=== PATIENT | female | born 1935 | race Hispanic/Latino ===

== ENCOUNTER 2017-02-12 17:08 | Observation (INO) | payer MEDICARE, OTHER ==
--- NOTE | 2017-02-12 17:32 | ED PDOC ---
Arrival/HPI - General Historian: Patient - General Chief Complaint: Chest Pain Time Seen by Provider: 02/12/17 17:20 - History of Present Illness Narrative History of Present Illness (Text): 02/12/17 17:28 Mrs. Lira is a 81 year old female with pmh significant for DM2, hypertension, and elevated cholesterol who presents to the emergency department after being sent over from her PCP's office for chest discomfort. Pt reports a chest tightness along her anterior bra line with some radiation around her side bilaterally. She denies shob, sharp pain upon inspiration, chest pain, fever, nausea, vomiting, or diaphoresis. Pt denies any previous history of chest discomfort. (MICHAEL ARIZMENDI) Past Medical History - Provider Review Nursing Documentation Reviewed: Yes - Infectious Disease Hx of Infectious Diseases: None - Cardiac Hx Hypertension: Yes - Pulmonary Hx Respiratory Disorders: No - Neurological Hx Neurological Disorder: No Other/Comment: diabetic neuropathy, numbness, tingling ble - HEENT Hx HEENT Disorder: Yes (glasses) Hx Cataracts: Yes (b/l sx) - Renal Hx Renal Disorder: No - Endocrine/Metabolic Hx Diabetes Mellitus Type 2: Yes - Hematological/Oncological Hx Blood Transfusions: Yes Hx Blood Transfusion Reaction: No - Integumentary Hx Dermatological Disorder: No - Musculoskeletal/Rheumatological Hx Falls: Yes - Gastrointestinal Hx Gastrointestinal Disorders: No - Genitourinary/Gynecological Hx Reproductive Disorders: No - Psychiatric Hx Anxiety: Yes Hx Substance Use: No - Surgical History Hx Orthopedic Surgery: Yes (left ankle 04/2015 wears brace) - Anesthesia Hx Anesthesia: Yes Hx Anesthesia Reactions: No Hx Malignant Hyperthermia: No - Suicidal Assessment Feels Threatened In Home Enviroment: No Family/Social History - Physician Review Nursing Documentation Reviewed: Yes Family/Social History: No Known Family HX Smoking Status: Never Smoked Hx Alcohol Use: No Hx Substance Use: No Allergies/Home Meds Allergies/Adverse Reactions: Allergies No Known Allergies Allergy (Verified 07/18/15 23:59) Home Medications: Home Meds Medication Instructions Recorded Confirmed Glipizide 20 mg PO BID 09/14/14 02/12/17 Alprazolam [Xanax] 0.25 mg PO BID PRN 03/29/15 02/12/17 Levothyroxine [Synthroid] 0.025 mg PO DAILY 03/29/15 02/12/17 Rosuvastatin Calcium [Crestor] 10 mg PO DAILY 03/29/15 02/12/17 Gabapentin [Neurontin] 300 mg PO TID PRN 02/12/17 02/12/17 Lisinopril [Zestril] 1 tab PO DAILY 02/12/17 02/12/17 Review of Systems - Review of Systems Constitutional: absent: Fatigue, Weight Change Eyes: absent: Vision Changes, Photophobia Respiratory: absent: SOB, Cough Cardiovascular: Other (chest tightness along bra line). absent: Chest Pain, Edema Gastrointestinal: absent: Abdominal Pain, Stool Changes Genitourinary Female: absent: Dysuria, Frequency Musculoskeletal: absent: Neck Pain Skin: absent: Rash, Pruritis Neurological: absent: Headache, Dizziness Endocrine: absent: Diaphoresis Psychiatric: absent: Anxiety, Depression Physical Exam Temperature: Afebrile Blood Pressure: Hypertensive Pulse: Tachycardic Respiratory Rate: Normal Appearance: Positive for: Well-Appearing Pain Distress: None Mental Status: Positive for: Alert and Oriented X 3 - Systems Exam Head: Present: Atraumatic, Normocephalic Pupils: Present: PERRL Extroacular Muscles: Present: EOMI Conjunctiva: Present: Normal Mouth: Present: Moist Mucous Membranes Neck: Present: Normal Range of Motion. No: JVD Respiratory/Chest: Present: Clear to Auscultation, Good Air Exchange. No: Respiratory Distress, Accessory Muscle Use, Wheezes Cardiovascular: Present: Regular Rate and Rhythm, Normal S1, S2, Other (No S3) Abdomen: Present: Normal Bowel Sounds. No: Tenderness, Distention Upper Extremity: Present: Normal Inspection, Normal ROM, NORMAL PULSES Lower Extremity: Present: Normal Inspection, NORMAL PULSES, Normal ROM Neurological: Present: GCS=15, CN II-XII Intact, Speech Normal, Memory Normal Skin: Present: Warm, Dry Psychiatric: Present: Alert, Oriented x 3 Medical Decision Making ED Course and Treatment: 02/12/17 17:35 Impression: Mrs. Lira is a 81 year old female who complains of chest discomfort for the past week. Differential Diagnosis included but are not limited to: - ACS rule out Plan: - Labs: CBC, CMP, Cardiac enzymes - EKG, CXR -- Reassess and disposition Progress Notes: CXR: No acute disease EKG: NSR, rate of 100, no ST elevations, nonspecific T wave changes Accepted by Dr. Lou for cardiac observation, recommends construction administrator consult with Dr. Tse Cardiology consult placed (MICHAEL ARIZMENDI) Seen and examined with resident. 81 y/o F p/w chest pain. Heart S1S2, no extra heart sounds. (Imm,Jaycob Garrett) - Lab Interpretations Lab Results: 02/12/17 17:30 02/12/17 17:30 Lab Results 02/12/17 17:30: Sodium 141, Potassium 4.8, Chloride 107, Carbon Dioxide 21, Anion Gap 18, BUN 34 H, Creatinine 1.3, Est GFR ( Amer) 48, Est GFR (Non- Af Amer) 40, Random Glucose 85, Calcium 10.0, Total Bilirubin 0.5, AST 22, ALT 16, Alkaline Phosphatase 73, Total Creatine Kinase 66, Troponin I < 0.01, Total Protein 8.4 H, Albumin 4.7, Globulin 3.7, Albumin/Globulin Ratio 1.3 02/12/17 17:30: WBC 8.4 D, RBC 3.31 L, Hgb 9.4 L, Hct 29.0 L, MCV 87.6, MCH 28.4, MCHC 32.4, RDW 14.0, Plt Count 368, MPV 10.0, Gran % 63.2, Lymph % (Auto) 24.8, Davie % (Auto) 8.2 H, Eos % (Auto) 2.7, Baso % (Auto) 1.1, Gran # 5.30, Lymph # 2.1, Davie # 0.7 H, Eos # 0.2, Baso # 0.09 - RAD Interpretation Radiology Orders: 02/12/17 17:20 CHEST PORTABLE [RAD] Stat - Medication Orders Current Medication Orders: Discontinued Medications Aspirin (Aspirin) 325 mg PO STAT STA Stop: 02/12/17 17:24 Last Admin: 02/12/17 17:44 Dose: 325 mg - PA / PUBLIC ADDRESS SYSTEM OPERATOR / Resident Statement / has reviewed & agrees with the documentation as recorded. / has examined the patient and agrees with the treatment plan. Disposition/Present on Arrival - Present on Arrival Any Indicators Present on Arrival: No History of DVT/PE: No History of Uncontrolled Diabetes: No Urinary Catheter: No History of Decub. Ulcer: No History Surgical Site Infection Following: None - Disposition Have Diagnosis and Disposition been Completed?: Yes Disposition Time: 18:05 Patient Plan: Observation, Telemetry - Disposition Diagnosis: Chest pain Disposition: HOSPITALIZED Condition: STABLE Discharge Instructions (ExitCare): Chest Pain (ED)
[2017-02-12 17:51] LABS: ALB/GLOB RATIO 1.3 (1.1-1.8); ALBUMIN 4.7 g/dL (3.0-4.8); ALT/SGPT 16 U/L (7-56); AST/SGOT 22 U/L (15-39); BLOOD UREA NITROGEN 34 mg/dL (7-21); GFR AFRICAN-AMERICAN 48; GFR NON-AFRICAN AMERICAN 40
[2017-02-12 17:52] LABS: BASO # 0.09 K/mm3 (0.0-2.0); BASO % 1.1 % (0.0-3.0); EOS # 0.2 (0.0-0.7); EOS % 2.7 % (1.5-5.0); GRAN % 63.2 % (50.0-68.0); HEMOGLOBIN 9.4 gm/dL (12.0-16.0); LYMPH # 2.1 (1.2-3.4); LYMPH % 24.8 % (22.0-35.0); MEAN CELL VOLUME 87.6 fL (80.0-105.0); MEAN CORPUSCULAR HEMOGLOBIN 28.4 pg (25.0-35.0); MEAN CORPUSCULAR HGB CONC 32.4 g/dl (31.0-37.0); MONO # 0.7 (0.1-0.6); MONO % 8.2 % (1.0-6.0); PLATELET COUNT 368 10^3/uL (120.0-450.0); RBC 3.31 10^6/uL (3.5-6.1); WHITE BLOOD COUNT 8.4 10^3/ul (4.5-11.0)
[2017-02-12 18:03] LABS: TROPONIN I < 0.01 ng/mL
[2017-02-13] MEDS ORDERED: Levothyroxine 25 MCG TAB PO SCH (06:00)
--- NOTE | 2017-02-13 09:24 | CARD ---
APPROVED REPORT EKG Measurement Heart [id number] <Conclusion> Sinus tachycardia T wave abnormality, consider lateral ischemia Abnormal ECG
--- NOTE | 2017-02-13 09:57 | RAD ---
HISTORY: cp COMPARISON: No prior. Comparison chest 07/24/2015 FINDINGS: LUNGS: Poor inspiration with low lung volumes, mild crowded bronchovascular markings and mild bibasilar atelectasis. PLEURA: No significant pleural effusion identified, no pneumothorax apparent. CARDIOVASCULAR: Normal. OSSEOUS STRUCTURES: No significant abnormalities. VISUALIZED UPPER ABDOMEN: Normal. OTHER FINDINGS: None. IMPRESSION: Poor inspiration with low lung volumes, mild crowded bronchovascular markings and mild bibasilar atelectasis.
[2017-02-13 11:56] VITALS: BP 147/67; RESP 19; TEMP 98.1; O2SAT 98
[2017-02-13 16:39] VITALS: PULSE 80
--- NOTE | 2017-02-14 03:41 | CON ---
DATE: 02/13/2017 REQUESTING PHYSICIAN: Dr. Chong REASON FOR CONSULTATION: Chest pain. HISTORY OF PRESENT ILLNESS: This is a 81-year-old woman with a longstanding history of hypertension, diabetes, who was sent from Dr. Salvador's office yesterday with complaints of chest discomfort. She describes her discomfort as a fullness under both breasts. Her pain has waxed and waned. She fells somewhat better when standing. She did not describe any clear exertional component to her symptoms. She states the discomfort has been present on and off for a number of weeks. Initial electrocardiogram and blood work were unremarkable. Her last stress test that she believes was over 10 years ago. She does have a longstanding history of hypertension and diabetes. She also has a history of hyperlipidemia. She does not smoke. There is no family history of premature heart disease. PAST MEDICAL HISTORY: Her past history is notable for a total abdominal hysterectomy, bilateral salpingo-oophorectomy. She fractured both ankles in the past and required surgery. She has had a peripheral neuropathy for some period of time. She requires a brace on her left foot for ambulation. She is fairly limited in terms of activities. History of hypothyroidism. MEDICATIONS: Her medications at home include: 1. Glipizide 20 mg b.i.d. 2. Xanax p.r.n. 3. Synthroid 0.025 mg daily. 4. Crestor 10 mg daily. 5. Lisinopril. 6. Neurontin. ALLERGIES: SHE HAS NO REPORTED ALLERGIES. FAMILY HISTORY: Both parents are from age-related illness. A 10-point review of systems is notable mainly for the problems mentioned above. PHYSICAL EXAMINATION GENERAL: She is a elderly women who appears relatively comfortable at the present time. VITAL SIGNS: Her blood pressure is 122/64, with pulse 72 in sinus and respirations 14. She is afebrile. HEENT: Normocephalic and atraumatic. Pupils are equal, round and reactive to light and accommodation. NECK: Supple. No JVD noted. CHEST: Clear to auscultation and percussion. HEART: PMI. No positional or pathological murmurs noted. ABDOMEN: Soft, nontender and normoactive bowel sounds. EXTREMITIES: No clubbing, cyanosis or edema. A brace is present on her left foot. SKIN: Warm and dry. PSYCHIATRIC: Normal mood and affect. NEUROLOGIC: Alert and oriented x3. No gross motor or sensory deficits appreciable. DIAGNOSIS DATA: Electrocardiogram reveals sinus rhythm with nonspecific ST-T abnormalities. Chest X-ray reveals normal cardiac silhouette with clear lung tolbert. White count is 8.4, hemoglobin and hematocrit 9.4 and 29.0 with an MCV of 87.6 and platelet count is 368.000. Potassium 4.8, BUN and creatinine 34 and 1.3. Two sets of cardiac enzymes are normal. IMPRESSION: 1. Chest pain. Does not appear clearly cardiac in nature given some characteristics of her pain. She does, however, have significant cardiac risk factors given her age, hypertension, diabetes, and hyperlipidemia. 2. Apparent anemia, unclear if this is new or old. Further evaluation may be in order. 3. History of hypertension and diabetes. RECOMMENDATIONS: From a cardiac standpoint, if her third set of cardiac enzymes are negative she can be discharged home at this time. An outpatient pharmacologic stress test will be arranged. If she has recurrent symptoms she was instructed to return to emergency room. Thank you for this consultation. We will be happy to provide further ongoing followup as needed. Jaycob Leblanc MD
--- NOTE | 2017-02-15 00:42 | HP ---
HISTORY OF PRESENT ILLNESS: The patient is a 81-year-old, patient of Dr. Salvador. She had some chest pressure as if somebody is squeezing her lower chest, so she went to Dr. Salvador, who checked her out and advised her to go to emergency room for further evaluation to rule out if she is not having angina or AK. Denies any fever or chills. No history of nausea or vomiting. No history of diarrhea. PAST MEDICAL HISTORY: Significant for: 1. Ucx-bvymhhj-odjluzfry diabetes. 2. Hypertension. 3. Remote history of left ankle fracture, couple of months ago. ALLERGIES: She is not allergic to any medication. MEDICATIONS AT HOME: She is on: 1. Metformin 500 twice a day. 2. Amlodipine 10 mg daily. 3. Gabapentin 300 three times a day. 4. Glipizide 10 mg twice a day. 5. Xanax 0.25 b.i.d. 6. Levothyroxine 25 mcg daily. 7. Lisinopril 10 mg daily. 8. Tradjenta 5 mg daily. 9. Crestor 10 mg daily. SOCIAL HISTORY: She lives by herself. Denies smoking now, she used to be heavy smoker in the past. REVIEW OF SYSTEMS: She has no significant complaint at this point except her left ankle pain that she gets on ambulation, and her left foot is in the brace. PHYSICAL EXAMINATION: GENERAL: She is awake and alert, communicative. VITAL SIGNS: She is afebrile, pulse 77, respirations 19, and blood pressure 147/67. HEART: S1 and S2 audible. LUNGS: Bilateral fair airflow. No rhonchi or crackles. ABDOMEN: Soft and nontender. No rebound, no guarding. NEUROLOGIC: The patient is awake and alert, communicative. LABORATORY EXAM: WBC is 8.4, hemoglobin 9.4, hematocrit 29, platelets 368. Chemistries, sodium 141, potassium 4.8, chloride 107, CO2 21, BUN 34, creatinine 1.3, and blood sugar of 111. X-ray of chest is unremarkable. EKG shows sinus tachycardia, T-wave inversion. ASSESSMENT: 1. Chest pain, questionable coronary artery disease. 2. Kdo-nlqcqmi-pzodcwjms diabetes. 3. Hypertension. 4. Hyperlipidemia. 5. Hypothyroidism. PLAN: The patient is sitting at the edge, wanted to go home. She was evaluated by Dr. Cory, who told her that it is okay for her to go home, and since I am not familiar to the patient as much, so it was decided based on patient's wish to go home and follow Dr. Ray as an outpatient to have stress test done as an outpatient. She is advised to resume all the medications as prior to admission, including metformin, amlodipine, gabapentin, glipizide, Xanax, levothyroxine, lisinopril, and Crestor and she was told that if she gets chest pain, she should immediately come back to the hospital. Spike Ding MD
== END 2017-02-13 16:33 | disposition home or self-care (01) ==
LOC: ED 17:08 → ERH 18:19 → 2RSO 21:16
PROVIDERS: ADMIT Internal Medicine Nephrology; ATTEND Internal Medicine Nephrology
DX: R07.89 Other chest pain (principal); I10 Essential (primary) hypertension; E11.42 Type 2 diabetes mellitus with diabetic polyneuropathy; E78.5 Hyperlipidemia, unspecified; E03.9 Hypothyroidism, unspecified; D64.9 Anemia, unspecified; Z79.84 Long term (current) use of oral hypoglycemic drugs
CPT/HCPCS: 36415; 71010; 80053; 82550; 82948; 84484; 85025; 93005; 99285; G0378

== ENCOUNTER 2017-11-19 09:51 | Observation (INO) | payer MEDICARE, OTHER ==
[2017-11-19 10:12] VITALS: BMI 26.9
--- NOTE | 2017-11-19 10:16 | ED PDOC ---
Arrival/HPI - General Chief Complaint: Shortness Of Breath Time Seen by Provider: 11/19/17 10:14 Historian: Patient - History of Present Illness Narrative History of Present Illness (Text): 11/19/17 10:20 82 year old female, whose PMH includes transfusion/DM, who presents to the emergency department, accompanied by daughter, complaining of shortness of breath for the last 2-3 days ago. Patient reports the symptom is worse with movement such as bending over to tie shoes, or taking a few steps. She associates this with being extremely fatigue and notes making an appointment with her PMD for today, but symptoms became worse and decided to come to the emergency department for further eval. Patient denies fever, chills, sweats, chest pain, palpitation, abdominal pain, nausea, vomiting, diarrhea, or appetite changes. pt denied LOC, no lightheadedness. pt is here for further eval, pt's without other complaints Additionally, patient does not recollect previous stress test being done by her court commissioner. PMD: Dr. Salvador Food Server: Dr. Matthew Time/Duration: < week Symptom Onset: Gradual Symptom Course: Worsening Activities at Onset: Light Context: Exertion, Home Past Medical History - Provider Review Nursing Documentation Reviewed: Yes - Travel History Have you recently traveled outside [place] w/in the past 3 mons?: No - Past History Past History: No Previous - Infectious Disease Hx of Infectious Diseases: None - Tetanus Immunization Tetanus Immunization: Unknown - Reproductive Menopause: Yes Currently : No - Cardiac Hx Peripheral Vascular Disease: Yes - Pulmonary Hx Pneumonia: Yes (x2) - Neurological Hx Neurological Disorder: No Other/Comment: diabetic neuropathy, numbness, tingling ble - HEENT Hx HEENT Disorder: Yes (glasses) Hx Cataracts: Yes (b/l sx) - Renal Hx Renal Disorder: No - Endocrine/Metabolic Hx Diabetes Mellitus Type 2: Yes - Hematological/Oncological Hx Blood Transfusions: Yes Hx Blood Transfusion Reaction: No - Integumentary Hx Dermatological Disorder: No - Musculoskeletal/Rheumatological Hx Falls: Yes (today) - Gastrointestinal Hx Gastrointestinal Disorders: No - Genitourinary/Gynecological Hx Reproductive Disorders: No - Psychiatric Hx Anxiety: Yes Hx Substance Use: No - Surgical History Hx Cardiac Catheterization: Yes (10 years ago) - Anesthesia Hx Anesthesia: Yes Hx Anesthesia Reactions: No Hx Malignant Hyperthermia: No - Suicidal Assessment Feels Threatened In Home Enviroment: No Family/Social History - Physician Review Nursing Documentation Reviewed: Yes Family/Social History: Unknown Family HX Smoking Status: Former Smoker Hx Alcohol Use: No Hx Substance Use: No Hx Substance Use Treatment: No Allergies/Home Meds Allergies/Adverse Reactions: Allergies No Known Allergies Allergy (Verified 11/19/17 10:06) Home Medications: Home Meds Medication Instructions Recorded Confirmed Glipizide 20 mg PO BID 09/14/14 11/19/17 Levothyroxine [Synthroid] 50 mcg PO DAILY 03/29/15 11/19/17 Rosuvastatin Calcium [Crestor] 10 mg PO DAILY 03/29/15 11/19/17 Gabapentin [Neurontin] 300 mg PO TID PRN 02/12/17 11/19/17 amLODIPine [Norvasc] 5 mg PO DAILY 11/19/17 11/19/17 Review of Systems - Review of Systems Constitutional: Fatigue. absent: Fevers ENT: absent: Sore Throat Respiratory: SOB. absent: Cough Cardiovascular: absent: Chest Pain Gastrointestinal: absent: Abdominal Pain, Vomiting, Appetite Changes Genitourinary Female: absent: Dysuria Musculoskeletal: absent: Arthralgias, Back Pain Skin: absent: Rash Neurological: absent: Headache Endocrine: absent: Diaphoresis Hemo/Lymphatic: Normal Psychiatric: Normal Physical Exam Vital Signs Reviewed: Yes Vital Signs Temp Pulse Resp BP Pulse Ox 11/19/17 10:06 97.7 F 96 H 22 143/68 97 Temperature: Afebrile Blood Pressure: Hypertensive Pulse: Regular Respiratory Rate: Normal Appearance: Positive for: Well-Appearing, Non-Toxic, Uncomfortable, Other (alert /awake, GCS = 15, oriented x 3, mildly uncomfortable, resting in bed, NAD, cooperative) Pain Distress: None Mental Status: Positive for: Alert and Oriented X 3 - Systems Exam Head: Present: Atraumatic, Normocephalic, Other (mild bi-temporal wasting) Pupils: Present: PERRL, Other (no nystagmus, no photophobia, sclera anicteric; visual field intact b/l) Extroacular Muscles: Present: EOMI Conjunctiva: Present: Normal Ears: Present: Normal Mouth: Present: Moist Mucous Membranes, Other (fair dentitions, no drooling/ stridor, no exudate/lesions, no ulcerations) Pharnyx: Present: Normal Nose (External): Present: Atraumatic Nose (Internal): Present: Normal Inspection Neck: Present: Normal Range of Motion, Trachea Midline, Other (no step off, no midline tenderness). No: Meningeal Signs, MIDLINE TENDERNESS Respiratory/Chest: Present: Clear to Auscultation, Good Air Exchange, Other ( CTA b/l, no w/r/r, no tachypenia). No: Respiratory Distress, Accessory Muscle Use Cardiovascular: Present: Regular Rate and Rhythm, Normal S1, S2. No: Murmurs Abdomen: Present: Normal Bowel Sounds, Other (well nourished female, no focal tenderness, no masses/rebound/guarding/rigidity, no bai's sign, no mcburney' s point tenderness). No: Tenderness, Distention, Peritoneal Signs Back: Present: Normal Inspection. No: CVA Tenderness, Midline Tenderness Upper Extremity: Present: Normal Inspection, Normal ROM, NORMAL PULSES, Neurovascularly Intact. No: Cyanosis, Edema Lower Extremity: Present: Normal Inspection, NORMAL PULSES, Normal ROM, Neurovascularly Intact, Other (slight left lower ankle edema, non-pitting; neurovasc intact b/l, strength 5/5 grossly intact b/l, no neel's sign b/l). No : Edema Neurological: Present: GCS=15, CN II-XII Intact, Speech Normal Skin: Present: Warm, Normal Color, Other (cap refill ~ 1sec, + pallor, no petechiae/lesions). No: Rashes Psychiatric: Present: Alert, Oriented x 3, Normal Insight, Normal Concentration Medical Decision Making ED Course and Treatment: 11/19/17 Impression: 82 year old female with shortness of breath associated with fatigue. I have considered all Differential Diagnosis regarding pt's chief medical complaints/clinical findings included but are not limited to: r/o ACS, r/o failure; unlikely infectious Plan: -- EKG -- Chest X-ray -- Labs -- Reassess and disposition Progress Notes: pt is comfortable currently pt is not in any distress 11/19/17 11:[address] Roman who is aware of ED mgt/txt plan and agrees with admission. Dr Roman also agrees with consultation with , court commissioner. pt denied any chest pain currently pt is made aware of her medical results discussed with the family at length, pt's findings and diagnosis, and the treatments rendered agrees with admission 11/19/17 14:03 Dr. oRman is updated on further diagnosis of the patient (ABNL xray), pt remains admitted to the hospital and will continue to monitor patient inpatient. Re-evaluation Time: 13:00 Reassessment Condition: Improving,but remains with symptoms - Critical Care Critical Care Minutes: 30 minutes Critical Care Time: Excluding Proc Time Narrative Critical Care (Text): 11/19/17 14:35 critical care time: 30min, excluding procedure time, excluding time teaching residents/students/mid-level providers; including initial eval/diagnosis, diagnostic interpretation, re-eval, consultations, final disposition - Lab Interpretations Lab Results: 11/19/17 10:05 11/19/17 10:05 Lab Results 11/19/17 14:10: POC Glucose (mg/dL) 266 H 11/19/17 11:10: Urine Color Yellow, Urine Appearance Clear, Urine pH 6.0, Ur Specific [place] 1.010, Urine Protein 30 H, Urine Glucose (UA) 500 H, Urine Ketones Negative, Urine Blood Negative, Urine Nitrate Negative, Urine Bilirubin Negative, Urine Urobilinogen 0.2, Ur Leukocyte Esterase Small H, Urine RBC 0 - 2 , Urine WBC 10 - 15, Ur Epithelial Cells 4 - 5, Amorphous Sediment Few, Urine Bacteria Mod 11/19/17 10:05: TSH 3rd Generation 1.94 11/19/17 10:05: Sodium 138, Chloride 106, Potassium 4.5, Carbon Dioxide 20 L, Anion Gap 17, BUN 41 H, Creatinine 1.8 H, Est GFR ( Amer) 33, Est GFR ( Non-Af Amer) 27, Random Glucose 303 H* D, Calcium 9.2, Total Bilirubin 0.3, AST 12 L, ALT 23, Alkaline Phosphatase 75, Lactate Dehydrogenase 471, Total Creatine Kinase 61, Troponin I < 0.01, NT-Pro-B Natriuret Pep 2700 H, Total Protein 7.0, Albumin 4.0, Globulin 2.9, Albumin/Globulin Ratio 1.4 11/19/17 10:05: pO2 40, VBG pH 7.28 L, VBG pCO2 47.0, VBG HCO3 22.1, VBG Total CO2 23.5, VBG O2 Sat (Calc) 76.6 H, VBG Base Excess -4.8 L, VBG Potassium 4.7, Sodium 135.0, Chloride 107.0, Glucose 325 H, Lactate 0.8, FiO2 21.0, Venous Blood Potassium 4.7 11/19/17 10:05: PT 11.2, INR 0.97, APTT 30.0 11/19/17 10:05: WBC 9.6, RBC 2.94 L, Hgb 8.3 L, Hct 25.4 L, MCV 86.4, MCH 28.2, MCHC 32.7, RDW 14.2, Plt Count 412, MPV 10.2, Gran % 72.7 H, Lymph % (Auto) 18.6 L, [place] % (Auto) 6.1 H, Eos % (Auto) 2.1, Baso % (Auto) 0.5, Gran # 6.96 H , Lymph # (Auto) 1.8, [place] # (Auto) 0.6, Eos # (Auto) 0.2, Baso # (Auto) 0.05 I have reviewed the lab results: Yes Interpretation: Abnormal lab values (elevated BNP; decr h/h (chronic), elevated GLUC) - RAD Interpretation Narrative RAD Interpretations (Text): 11/19/17 14:35 HISTORY: Leg pain and swelling. Evaluate for DVT PHYSICIAN(S): Niall Calix MD. TECHNIQUE: Duplex sonography and color-flow Doppler with graded compression were used to evaluate the deep venous systems of both lower extremities. FINDINGS: The visualized deep venous systems of both lower extremities are sonographically normal and compressible. Normal wave forms and augmentation are seen. There is no sonographic evidence for deep venous thrombosis in the visualized segments of both lower extremities. IMPRESSION: No sonographic evidence for deep venous thrombosis in the visualized segments of both lower extremities. 11/19/17 14:35 HISTORY: Shortness of breath. COMPARISON: 02/12/2017 TECHNIQUE: Chest PA and lateral FINDINGS: LUNGS: Pulmonary vascular congestion. Collateral radiographs there dense consolidative changes in the lower lobes. PLEURA: No significant pleural effusion identified. No pneumothorax apparent. CARDIOVASCULAR: Normal size heart, pulmonary vascular plethora. OSSEOUS STRUCTURES: No significant abnormalities. VISUALIZED UPPER ABDOMEN: Normal. OTHER FINDINGS: None. IMPRESSION: Lower lobe infiltrates new finding compared to prior studies. There appears be a component of pulmonary vascular congestion. Radiology Orders: 11/19/17 10:33 CHEST TWO VIEWS (PA/LAT) [RAD] Stat DUPLEX LOWER EXTRM VEIN BILAT [US] Stat Compliance Analyst: Radiologist - EKG Interpretation EKG Interpretation (Text): 11/19/17 10:36 NSR at 95 bpm, normal axis, no ectopy, diffuse low voltage inf leads, non- specific st-t changes, ABNL EKG; unchanged compare with old ekg 01/2017 Interpreted by ED Physician: Yes Type: 12 lead EKG Comparison: Similar to previous EKG - Medication Orders Current Medication Orders: Amlodipine Besylate (Norvasc) 5 mg PO DAILY PASCALE Atorvastatin Calcium (Lipitor) 40 mg PO DAILY PASCALE Gabapentin (Neurontin) 300 mg PO TID PRN; Protocol PRN Reason: Pain, moderate (4-7) Glipizide (Glucotrol) 20 mg PO BID PASCALE Azithromycin (Zithromax 500mg In Ns) 500 mg in 250 mls @ 167 mls/hr IVPB STAT STA PRN Reason: Protocol Stop: 11/19/17 14:56 Levothyroxine Sodium (Synthroid) 50 mcg PO DAILY PASCALE Non-Formulary Medication (Linagliptin [Tradjenta]) 5 mg PO DAILY PASCALE Discontinued Medications Albuterol/Ipratropium (Duoneb 3 Mg/0.5 Mg (3 Ml) Ud) 3 ml IH STAT STA Stop: 11/19/17 10:35 Last Admin: 11/19/17 11:03 Dose: 3 ml Aspirin (Ecotrin) 81 mg PO STAT STA Stop: 11/19/17 10:34 Last Admin: 11/19/17 11:01 Dose: 81 mg Furosemide (Lasix) 40 mg IVP STAT STA Stop: 11/19/17 13:29 Ceftriaxone Sodium (Rocephin 1 Gram Ivpb) 1 gm in 100 mls @ 200 mls/hr IVPB STAT STA PRN Reason: Protocol Stop: 11/19/17 13:55 - Scribe Statement The provider has reviewed the documentation as recorded by the Jetibtia Leon Provider Scribe Attestation: All medical record entries made by the Scribe were at my direction and personally dictated by me. I have reviewed the chart and agree that the record accurately reflects my personal performance of the history, physical exam, medical decision making, and the department course for this patient. I have also personally directed, reviewed, and agree with the discharge instructions and disposition. Disposition/Present on Arrival - Present on Arrival Any Indicators Present on Arrival: No History of DVT/PE: No History of Uncontrolled Diabetes: Yes Urinary Catheter: No History of Decub. Ulcer: No History Surgical Site Infection Following: None - Disposition Have Diagnosis and Disposition been Completed?: Yes Diagnosis: Left lower lobe pneumonia, Acute CHF, SOB (shortness of breath) on exertion, Weakness Disposition: HOSPITALIZED Disposition Time: 13:00 Patient Plan: Admission Condition: STABLE Discharge Instructions (ExitCare): Heart Failure (ED), Weakness (ED)
[2017-11-19] MEDS ORDERED: Albuterol-Ipratrop 3 mg / 0.5 (3 ml) UD IH STA (10:34)
[2017-11-19 10:58] LABS: VENOUS BLOOD GAS BASE EXCESS -4.8 mmol/L (0.0-2.0); VENOUS BLOOD GAS PO2 40 mm/Hg (30-55); VENOUS BLOOD PH 7.28 (7.32-7.43)
[2017-11-19 11:00] LABS: BASO # 0.05 K/mm3 (0.0-2.0); BASO % 0.5 % (0.0-3.0); EOS # 0.2 (0.0-0.7); EOS % 2.1 % (1.5-5.0); GRAN # 6.96 (1.4-6.5); GRAN % 72.7 % (50.0-68.0); HEMOGLOBIN 8.3 g/dL (12.0-16.0); LYMPH # 1.8 (1.2-3.4); LYMPH % 18.6 % (22.0-35.0); MEAN CELL VOLUME 86.4 fl (80.0-105.0); MEAN CORPUSCULAR HEMOGLOBIN 28.2 pg (25.0-35.0); MEAN CORPUSCULAR HGB CONC 32.7 g/dl (31.0-37.0); MEAN PLATELET VOLUME 10.2 fl (7.0-11.0); MONO # 0.6 (0.1-0.6); MONO % 6.1 % (1.0-6.0); RBC 2.94 10^6/uL (3.5-6.1); RED CELL DISTRIBUTION WIDTH 14.2 % (11.5-14.5); WHITE BLOOD COUNT 9.6 10^3/ul (4.5-11.0)
[2017-11-19 11:18] LABS: INR 0.97 (0.93-1.08); PROTHROMBIN TIME 11.2 SECONDS (9.4-12.5)
[2017-11-19 11:19] LABS: ALB/GLOB RATIO 1.4 (1.1-1.8); ALT/SGPT 23 U/L (7-56); AST/SGOT 12 U/L (14-36); BLOOD UREA NITROGEN 41 mg/dL (7-21); CALCIUM 9.2 mg/dL (8.4-10.5); GFR AFRICAN-AMERICAN 33; GFR NON-AFRICAN AMERICAN 27
[2017-11-19 11:21] LABS: URINE BILIRUBIN NEGATIVE (NEGATIVE); URINE BLOOD NEGATIVE (NEGATIVE); URINE GLUCOSE (UA) 500 mg/dL (NEGATIVE); URINE LEUKOCYTE ESTERASE SMALL Leu/uL (NEGATIVE); URINE PROTEIN 30 mg/dL (<30 mg/dL); URINE UROBILINOGEN 0.2 E.U./dL (<1 E.U./dL)
[2017-11-19 11:22] LABS: URINE APPEARANCE CLEAR (CLEAR); URINE COLOR YELLOW (YELLOW)
[2017-11-19 11:22] LABS: B-TYPE NATRIURETIC PEPTIDE 2700 pg/mL (0-450); TROPONIN I < 0.01 ng/mL
[2017-11-19 11:30] LABS: URINE BACTERIA MOD (NEG); URINE RBC 0 - 2 /hpf (0-2)
[2017-11-19 11:31] LABS: URINE AMORPHOUS SEDIMENT FEW
--- NOTE | 2017-11-19 12:03 | RAD ---
HISTORY: Shortness of breath. COMPARISON: 02/12/2017 TECHNIQUE: Chest PA and lateral FINDINGS: LUNGS: Pulmonary vascular congestion. Collateral radiographs there dense consolidative changes in the lower lobes. PLEURA: No significant pleural effusion identified. No pneumothorax apparent. CARDIOVASCULAR: Normal size heart, pulmonary vascular plethora. OSSEOUS STRUCTURES: No significant abnormalities. VISUALIZED UPPER ABDOMEN: Normal. OTHER FINDINGS: None. IMPRESSION: Lower lobe infiltrates new finding compared to prior studies. There appears be a component of pulmonary vascular congestion.
--- NOTE | 2017-11-19 13:17 | US ---
HISTORY: Leg pain and swelling. Evaluate for DVT PHYSICIAN(S): Niall Calix MD. TECHNIQUE: Duplex sonography and color-flow Doppler with graded compression were used to evaluate the deep venous systems of both lower extremities. FINDINGS: The visualized deep venous systems of both lower extremities are sonographically normal and compressible. Normal wave forms and augmentation are seen. There is no sonographic evidence for deep venous thrombosis in the visualized segments of both lower extremities. IMPRESSION: No sonographic evidence for deep venous thrombosis in the visualized segments of both lower extremities.
[2017-11-19] MEDS ORDERED: cefTRIAXone 1 gm 1 GM/100 ML BAG IVPB STA (13:26)
[2017-11-19] MEDS ORDERED: Azithromycin 500MG/NS 250ml 500 MG/250 ML BAG IVPB STA (13:27)
--- NOTE | 2017-11-19 13:36 | CARD ---
APPROVED REPORT EKG Measurement Heart [id number] <Conclusion> Normal sinus rhythm Nonspecific T wave abnormality Abnormal ECG
[2017-11-19] MEDS: Levothyroxine 50 MCG TAB PO SCH (15:10)
[2017-11-20 06:53] LABS: BASO # 0.05 K/mm3 (0.0-2.0); BASO % 0.5 % (0.0-3.0); EOS # 0.2 (0.0-0.7); EOS % 1.7 % (1.5-5.0); GRAN # 8.08 (1.4-6.5); GRAN % 77.3 % (50.0-68.0); LYMPH # 1.5 (1.2-3.4); LYMPH % 14.2 % (22.0-35.0); MEAN CELL VOLUME 85.4 fl (80.0-105.0); MEAN CORPUSCULAR HEMOGLOBIN 27.8 pg (25.0-35.0); MEAN CORPUSCULAR HGB CONC 32.5 g/dl (31.0-37.0); MEAN PLATELET VOLUME 9.7 fl (7.0-11.0); MONO # 0.7 (0.1-0.6); MONO % 6.3 % (1.0-6.0); RBC 2.88 10^6/uL (3.5-6.1); RED CELL DISTRIBUTION WIDTH 14.2 % (11.5-14.5); WHITE BLOOD COUNT 10.5 10^3/ul (4.5-11.0)
[2017-11-20 07:21] LABS: ALB/GLOB RATIO 1.3 (1.1-1.8); ALBUMIN 3.9 g/dL (3.0-4.8); CALCIUM 9.5 mg/dL (8.4-10.5)
[2017-11-20] MEDS ORDERED: cefTRIAXone 1 gm 1 GM/100 ML BAG IVPB SCH (10:19)
[2017-11-20] MEDS: Levothyroxine 50 MCG TAB PO SCH (10:37)
--- NOTE | 2017-11-21 01:13 | CON ---
DATE: 11/20/2017 REQUESTING PHYSICIAN: Dr. Chong. REASON FOR CONSULTATION: Questionable congestive heart failure and dyspnea. HISTORY OF PRESENT ILLNESS: This is an 82-year-old woman known to us from previous evaluations with a history of chronic anemia and diabetes who presented to the emergency room with worsening dyspnea and cough for the past several days. In the emergency room, she was noted have a questionable infiltrate on chest x-ray and was found to be anemic as well. She does undergo intermittent Procrit injections as an outpatient basis for her hemoglobin. She apparently is scheduled this for next week. She denies any chest pain. She is unaware of any palpitations. She cannot recall when she was last seen in the office. Her past history is notable for the problems mentioned above. She has had a history of pneumonia in the past. She also has a history of diabetic neuropathy. MEDICATIONS: Her medications at home include Crestor 20 mg daily, glipizide 10 mg daily, metformin 500 g b.i.d., Tradjenta, Neurontin, Norvasc 10 mg daily and Synthroid. PAST MEDICAL HISTORY: History of hypertension, hypothyroidism. In the hospital, she been given a dose of Rocephin as well as Zithromax. ALLERGIES: NONE. SOCIAL HISTORY: She does not smoke or drink. FAMILY HISTORY: Unremarkable for premature heart disease. REVIEW OF SYSTEMS: A 10-point review of systems is notable mainly for problems as mentioned above. PHYSICAL EXAMINATION: GENERAL: She is an elderly woman who appears comfortable at rest. VITAL SIGNS: Her blood pressure is 140/76 with a pulse of 90 and sinus, respirations are 16. She is afebrile. HEENT: Normocephalic, atraumatic. NECK: Supple. No JVD noted. CHEST: Bibasilar crackles heard. HEART: PMI displaced laterally with a 3/6 systolic murmur is noted at the apex and left sternal border. ABDOMEN: Soft, nontender with normoactive bowel sounds. EXTREMITIES: No clubbing, cyanosis or edema. SKIN: Warm and dry. PSYCHIATRIC: Normal mood and affect. NEUROLOGIC: Alert and oriented x3. No gross motor or sensory deficits appreciable. DIAGNOSTIC DATA: Potassium 4.6, BUN and creatinine 40 and 1.8, glucose is 173. White count 10.5, hemoglobin and hematocrit is 8 and 24.6 with platelet count of 430,000. Electrocardiogram revealed sinus rhythm with nonspecific ST-T abnormalities. Chest x-ray reveals mildly enlarged cardiac silhouette with mild increased vascular markings, lower lobe infiltrates are noted especially on lateral film. IMPRESSION: 1. Apparent pneumonia, community-acquired. 2. Murmur consistent with mitral regurgitation, unclear if this has been known in prior admissions. 3. Chronic anemia, fairly profound at present. 4. Chronic renal insufficiency. 5. Rest of problems as noted. RECOMMENDATIONS: Antibiotic therapy should continue for her apparent pneumonia. She does not appear to be in over heart failure at the present time and diuretic therapy does not need to be instituted present time. She does have findings suggestive of significant mitral regurgitation and an echocardiogram will be obtained. She is to be discharge home and this will be arranged as an outpatient. Further plans will be made based upon her clinical course and results of the above findings. If she is felt to be medically stable for discharge home, the rest of her cardiac evaluation can be completed in the office. Thank for this consultation. We will be happy to follow along as needed. Jaycob Leblanc MD MTDJane
--- NOTE | 2017-11-21 01:28 | HP ---
DATE OF EXAM: 11/20/2017 HISTORY OF PRESENT ILLNESS: Ms. Lira is an 82-year-old female, admitted to the hospital with weakness and worsening shortness of breath. Chest x-ray showed bilateral pneumonia. She has a history of anemia and chronic kidney disease. She is currently on Aranesp monthly. Dr. Young managing erythropoietin stimulating agents. Denies any shortness of breath now. No fever during hospitalization. Chronic kidney disease stable. PAST MEDICAL HISTORY: Chronic kidney disease, anemia, recurrent pneumonia, peripheral vascular disease, diabetes mellitus 2, chronic anemia. PAST SURGICAL HISTORY: Cardiac catheterization 10 years ago. PERSONAL HISTORY: Former smoker. No history of alcohol abuse. FAMILY HISTORY: Not contributory. ALLERGIES: NO KNOWN DRUG ALLERGIES. HOME MEDICATIONS: Glipizide 20 mg p.o. b.i.d., levothyroxine 50 mcg daily, Crestor 10 mg daily, gabapentin 300 mg p.o. t.i.d., amlodipine 5 mg daily. REVIEW OF SYSTEMS: As per HPI. Rest of 12-point review of systems reviewed negative. PHYSICAL EXAMINATION: GENERAL: Comfortable in bed, in no acute distress. VITAL SIGNS: Temperature 97.7, heart rate is 96 per minute, respiratory rate 20 per minute, blood pressure 143/68, pulse ox is 97% on room air. HEENT: Normal. CHEST: Air entry present and equal bilateral. No added sounds. CARDIOVASCULAR: S1, S2 normal. No murmur. No gallop. ABDOMEN: Soft, nontender. No hepatosplenomegaly. EXTREMITIES: No edema. PAIN MANAGEMENT NURSE: Alert and oriented x3. No focal sensorimotor deficits. Chest x-ray bilateral pneumonia. LABORATORY DATA: White count 8.3, hemoglobin 25.4, platelet count 412, white count 9.6. BUN 41, creatinine 1.8, glucose 3.3. ASSESSMENT: 1. Bilateral community-acquired pneumonia. 2. Chronic anemia. 3. Chronic kidney disease stage 3. 4. Diabetes mellitus type 2. PLAN: She will be admitted to the hospital. IV antibiotics, ceftriaxone and Zithromax started. ID consultation, Dr. Sinha requested. Norvasc 5 mg daily, Xanax 0.5 mg p.o. at bedtime, Neurontin 300 mg p.o. t.i.d., glipizide 20 mg p.o. b.i.d, Synthroid 50 mcg daily, Tradjenta 5 mg p.o. daily. We will do the iron studies. She is on Aranesp monthly. Hemoglobin is 8 g/dL. Creatinine elevated to 1.8. Blood culture, urine culture negative. Philomena Pantoja MD MTDD
[2017-11-21 06:48] LABS: CALCIUM 9.3 mg/dL (8.4-10.5)
[2017-11-21 07:04] LABS: BASO # 0.04 K/mm3 (0.0-2.0); BASO % 0.4 % (0.0-3.0); EOS # 0.2 (0.0-0.7); EOS % 2.4 % (1.5-5.0); GRAN # 6.71 (1.4-6.5); GRAN % 70.3 % (50.0-68.0); HEMOGLOBIN 7.6 g/dL (12.0-16.0); LYMPH # 1.6 (1.2-3.4); LYMPH % 16.9 % (22.0-35.0); MEAN CELL VOLUME 85.9 fl (80.0-105.0); MEAN CORPUSCULAR HEMOGLOBIN 27.4 pg (25.0-35.0); MEAN CORPUSCULAR HGB CONC 31.9 g/dl (31.0-37.0); MEAN PLATELET VOLUME 9.7 fl (7.0-11.0); RBC 2.77 10^6/uL (3.5-6.1); RED CELL DISTRIBUTION WIDTH 14.2 % (11.5-14.5); WHITE BLOOD COUNT 9.5 10^3/ul (4.5-11.0)
[2017-11-21 08:48] VITALS: PULSE 91; RESP 20; TEMP 100.2; O2SAT 95
[2017-11-21 09:01] LABS: IRON 21 ug/dL (45-180)
[2017-11-21 09:11] LABS: % IRON SATURATION 9 % (20-55); TOTAL IRON BINDING CAPACITY 243 ug/dL (265-497)
[2017-11-21] MEDS: Levothyroxine 50 MCG TAB PO SCH (09:19)
[2017-11-21 09:21] VITALS: BP 120/62
[2017-11-21] MEDS ORDERED: DiphenhydrAMINE 50 mg/ml Inj IVP ONE (11:00)
--- NOTE | 2017-11-21 13:14 | PN ---
DATE: 11/21/2017 SUBJECTIVE: The patient is seen lying in bed on Remote Telemetry. She feels significantly better. Her cough is improved. She remains afebrile. CURRENT MEDICATIONS: Include Glucotrol 20 mg b.i.d., Tradjenta 5 mg daily, Lipitor 40 mg daily, Neurontin, amlodipine 5 mg daily, Rocephin, Zithromax, Synthroid and Xanax p.r.n. OBJECTIVE: GENERAL: She is an elderly woman who appears comfortable at rest. VITAL SIGNS: Her blood pressure is 126/66 with a pulse of 86, in sinus; respirations are 16, she is afebrile. HEENT: No JVD. CHEST: Faint crackles noted at both bases. HEART: PMI displaced laterally with a 3/6 systolic murmur at the apex radiating to the axilla. ABDOMEN: Soft, nontender, normoactive bowel sounds. EXTREMITIES: No edema. DIAGNOSTIC DATA: Potassium is 4.3, BUN and creatinine are 38 and 1.8. White count is 9.5, hemoglobin and hematocrit are 7.6 and 23.8 with a platelet count of 423,000. IMPRESSION: 1. Community-acquired pneumonia, appears clinically improved. 2. Mitral regurgitation. 3. Chronic anemia, receiving intermittent outpatient Procrit injections. 4. Chronic renal insufficiency. RECOMMENDATIONS: Her current medications should continue for now. If she is to be discharged home, an outpatient echocardiogram and office followup will be arranged. If she remains in-house, an echocardiogram can be performed in the morning. Conservative cardiac management is advised at the present time. We will follow up as needed. Jaycob Leblanc MD
--- NOTE | 2017-11-21 22:43 | DS ---
DISCHARGE DIAGNOSES: 1. Severe anemia. 2. Iron deficiency. 3. Chronic kidney disease, stage III. 4. Diabetes mellitus, type 2. 5. Bilateral community-acquired pneumonia. HOSPITAL COURSE: She was admitted with generalized weakness, shortness of breath. Hemoglobin on admission was 8.3 which declined to 7.6 today. She was given the option of blood transfusion which she refused. I spoke to the daughter, Ida. She agreed for IV iron. Iron studies were sent. Iron was low at 22, one dose of IV iron 200 mg given prior to discharge today. She will need continuation of IV iron as outpatient to maintain the normal hemoglobin. She is currently on Aranesp monthly, it was held last month. Chronic kidney disease, stable. PHYSICAL EXAMINATION ON DISCHARGE: GENERAL: Comfortable in bed, in no acute distress. VITAL SIGNS: Temperature 98.8, heart rate 80 per minute, respiratory rate 20 per minute, blood pressure 140/70, pulse ox is 97% on room air. HEENT: Pallor positive. NECK: No lymphadenopathy. CHEST: Air entry present and equal bilateral. No added sound. CARDIOVASCULAR: S1, S2 normal. No murmur. No gallop. ABDOMEN: Soft and nontender. No hepatosplenomegaly. EXTREMITIES: No edema. INTELLIGENCE DIRECTOR: Alert, oriented x3. No focal sensory-motor deficit. CONDITION ON DISCHARGE: Stable. DISPOSITION: Discharge home. HOME MEDICATIONS: Resume home medications. Follow up with Dr. Allred in 1 week. Follow up with Dr. Pantoja in 1 week for continuation of IV iron. Diet, heart-healthy diet. Time spent in preparing discharge, coordinating care 55 minutes. Philomena Pantoja MD
--- NOTE | 2017-11-22 04:25 | CON ---
DATE: 11/21/2017 LOCATION: The patient was seen early this morning, in room 376, bed 2. Patient's son and daughter were present, which helped with the history. CHIEF COMPLAINTS: Acute shortness of breath times 1 day duration. HISTORY OF PRESENT ILLNESS: This is an 82-year-old female with past medical history of diabetes mellitus, diabetic neuropathy, peripheral vascular disease and hyperlipidemia, who came in with shortness of breath. Patient denied any fevers, any chills. She was given diuretic. Shortness of breath improved. No nausea or vomiting. No chest pain. REVIEW OF SYSTEMS: A 12-point review of systems is performed. There are no headaches or no new back pain. No rash. No new joint pain. No fevers. No chills. PAST MEDICAL HISTORY: Significant for diabetes mellitus, diabetic neuropathy, peripheral vascular disease, hyperlipidemia, cataracts and anxiety. PAST SURGICAL HISTORY: Significant for hysterectomy, cardiac catheterization and appendectomy. ALLERGIES: PATIENT HAS NO KNOWN ALLERGIES. MEDICATIONS AT HOME: Reveal the patient to be on glipizide, Synthroid, Crestor, Neurontin and amlodipine. No exposure to any animals. No recent travel. PHYSICAL EXAMINATION: GENERAL: The patient is in bed. VITAL SIGNS: Temperature of 97; T-max is 100.2; heart rate of 91, it was up to 96; respiratory rate of 20, it was up to 22 with oxygen saturation of 95, with blood pressure is 116/63. HEENT: Unremarkable. NECK: Supple. LUNGS: Had decreased breath sounds. HEART: Normal S1, S2. ABDOMEN: Soft and nontender. LABORATORY EXAMINATION: Reveals a white count of 9.6, hemoglobin of 8.3, platelets of 412 and 72% granulocytosis. Coagulation is noted. Chemistries reveal a BUN of 38, creatinine of 1.8 and glucose is 175. The BNP is 2700. Patient had a procalcitonin of 0.05. Dr. Leblanc's note is reviewed. Blood cultures reveal, one bottle is Gram-positive cocci , the other bottle is negative, no growth. Urine culture is mixed organisms. ASSESSMENT AND PLAN: An 82-year-old female with diabetes mellitus and diabetic neuropathy who I saw earlier this morning; patient's daughter and son wanted the patient's discharge, they had an event to attend; who appeared comfortable; there were no fevers and the blood cultures were not available at that time, and admitted for systemic inflammatory response syndrome with Gram-positive cocci, bacteremia, probable contamination, I doubt to be a pathogen. I had recommended the patient to follow up as an outpatient. It appears that this presentation was more consistent with congestive heart failure, which responded to diuretics. At this point in time of this dictation, patient has already been discharged and on doxycycline. We will follow up with the coagulase on the blood cultures; if it is coagulase-negative staphylococcus, most consistent with a contamination; if it is coagulase positive, we will notify the patient to return to the hospital for further evaluation and we will discuss with Microbiology and Dr. Roman and Dr. Pantoja, who is covering Dr. Roman. Certainly, the patient did not appear sepsis with a normal procalcitonin and chest x-ray, which is nonspecific finding , read by Dr. Bladimir Montemayor with questionable left lower lobe infiltrate. Rickie Sinha MD
== END 2017-11-21 15:25 | disposition home or self-care (01) ==
LOC: ED 09:51 → ERH 13:28 → 3RSO 17:02
PROVIDERS: ADMIT Internal Medicine Nephrology; ATTEND Internal Medicine Nephrology
DX: J18.9 Pneumonia, unspecified organism (principal); I13.0 Hypertensive heart and chronic kidney disease with heart failure and stage 1 through stage 4 chronic kidney disease, or unspecified chronic kidney disease; I50.9 Heart failure, unspecified; N18.3 Chronic kidney disease, stage 3 (moderate); E11.22 Type 2 diabetes mellitus with diabetic chronic kidney disease; E11.51 Type 2 diabetes mellitus with diabetic peripheral angiopathy without gangrene; E03.9 Hypothyroidism, unspecified; I34.0 Nonrheumatic mitral (valve) insufficiency; E78.5 Hyperlipidemia, unspecified; E11.40 Type 2 diabetes mellitus with diabetic neuropathy, unspecified; D50.9 Iron deficiency anemia, unspecified; Z87.01 Personal history of pneumonia (recurrent); Z87.891 Personal history of nicotine dependence; Z90.710 Acquired absence of both cervix and uterus
CPT/HCPCS: 36415; 71046; 80048; 80053; 81001; 82550; 82728; 82803; 82948; 83540; 83550; 83615; 83880; 84145; 84443; 84484; 85025; 85610; 85730; 87040; 87086; 87149; 87205; 93005; 93970; 96374; 99285; G0378; J0456; J0696; J1200; J1756; J1940

== ENCOUNTER 2017-12-28 04:46 | Emergency (ER) | payer MEDICARE, OTHER ==
[2017-12-28 05:03] VITALS: BMI 22.3
--- NOTE | 2017-12-28 05:35 | ED PDOC ---
Arrival/HPI - General Chief Complaint: Shortness Of Breath Time Seen by Provider: 12/28/17 05:04 Historian: Patient, Family - History of Present Illness Narrative History of Present Illness (Text): 12/28/17 05:35 Julianna Lira is an 82 year old female, whose past medical history includes diabetes, hypertension, and CHF, who presents to the Emergency department brought in by EMS accompanied by daughter for generalized weakness and chest tightness. Patient states she began experiencing generalized weakness when she woke up this morning and was unable to stand on her own. Patient states she laid herself on to the ground and crawled to kitchen to grab something to eat, as patient believed symptoms were secondary to her diabetes. Patient states she is now experiencing shortness of breath and chest tightness. Patient denies any fever, chills, abdominal pain, nausea, vomiting, diarrhea, back pain, neck pain , headache, dizziness, or any other complaints. PMD: Dr. Salvador Sephora Product Consultant: Dr. Tse Time/Duration: Other (today) Symptom Course: Unchanged Context: Home Past Medical History - Provider Review Nursing Documentation Reviewed: Yes - Past History Past History: No Previous - Infectious Disease Hx of Infectious Diseases: None - Tetanus Immunization Tetanus Immunization: Unknown - Cardiac Hx Peripheral Vascular Disease: Yes Other/Comment: hyperlipidemia - Pulmonary Hx Pneumonia: Yes (x2) - Neurological Hx Neurological Disorder: No Other/Comment: diabetic neuropathy, numbness, tingling ble - HEENT Hx HEENT Disorder: Yes (glasses) Hx Cataracts: Yes (b/l sx) - Renal Hx Renal Disorder: No - Endocrine/Metabolic Hx Diabetes Mellitus Type 2: Yes - Hematological/Oncological Hx Blood Disorders: No Other/Comment: BLOOD TRANSFUSION - Integumentary Hx Dermatological Disorder: No - Musculoskeletal/Rheumatological Hx Falls: Yes - Gastrointestinal Hx Gastrointestinal Disorders: No - Genitourinary/Gynecological Hx Genitourinary Disorders: No - Psychiatric Hx Anxiety: Yes Hx Substance Use: No - Surgical History Hx Cardiac Catheterization: Yes (10 years ago) Hx Orthopedic Surgery: Yes (left ankle 04/2015 wears brace) - Anesthesia Hx Anesthesia: Yes Hx Anesthesia Reactions: No Hx Malignant Hyperthermia: No - Suicidal Assessment Feels Threatened In Home Enviroment: No Family/Social History - Physician Review Nursing Documentation Reviewed: Yes Family/Social History: Unknown Family HX Smoking Status: Never Smoked Hx Alcohol Use: No Hx Substance Use: No Hx Substance Use Treatment: No Allergies/Home Meds Allergies/Adverse Reactions: Allergies No Known Allergies Allergy (Verified 12/28/17 05:02) Home Medications: Home Meds Medication Instructions Recorded Confirmed Glipizide 20 mg PO BID 09/14/14 12/28/17 Levothyroxine [Synthroid] 50 mcg PO DAILY 03/29/15 12/28/17 Rosuvastatin Calcium [Crestor] 10 mg PO DAILY 03/29/15 12/28/17 Gabapentin [Neurontin] 300 mg PO TID PRN 02/12/17 12/28/17 amLODIPine [Norvasc] 5 mg PO DAILY 11/19/17 12/28/17 Ferrous Sulfate [Feosol] 325 mg PO DAILY 12/28/17 12/28/17 Linagliptin [Tradjenta] 5 mg PO DAILY 12/28/17 12/28/17 Review of Systems - Physician Review All systems were reviewed & negative as marked: Yes - Review of Systems Constitutional: Other (+generalized weakness) Eyes: Normal ENT: Normal Respiratory: SOB Cardiovascular: Chest Pain Gastrointestinal: Normal. absent: Abdominal Pain, Diarrhea, Nausea, Vomiting Genitourinary Female: Normal. absent: Dysuria, Frequency, Hematuria, Urine Output Changes Musculoskeletal: Normal. absent: Back Pain, Neck Pain Skin: Normal. absent: Rash Neurological: Normal. absent: Headache, Dizziness Endocrine: Normal Hemo/Lymphatic: Normal Psychiatric: Normal Physical Exam Vital Signs Reviewed: Yes Vital Signs Temp Pulse Resp BP Pulse Ox 12/28/17 06:10 98 H 18 147/65 100 12/28/17 05:42 22 90 L 12/28/17 05:14 97.8 F 95 H 22 172/73 H 89 L 12/28/17 05:13 97.8 F 94 H 17 172/73 H 100 Temperature: Afebrile Blood Pressure: Hypertensive Pulse: Regular Respiratory Rate: Normal Appearance: Positive for: Well-Appearing, Non-Toxic, Comfortable Pain Distress: None Mental Status: Positive for: Alert and Oriented X 3 Finger Stick Blood Glucose: 146 - Systems Exam Head: Present: Atraumatic, Normocephalic Pupils: Present: PERRL Extroacular Muscles: Present: EOMI Conjunctiva: Present: Normal Mouth: Present: Moist Mucous Membranes Neck: Present: Normal Range of Motion Respiratory/Chest: Present: Wheezes, Rales (Rales at the bases). No: Respiratory Distress, Accessory Muscle Use Cardiovascular: Present: Regular Rate and Rhythm, Normal S1, S2. No: Murmurs Abdomen: No: Tenderness, Distention, Peritoneal Signs Back: Present: Normal Inspection Upper Extremity: Present: Normal Inspection. No: Cyanosis, Edema Lower Extremity: Present: Normal Inspection. No: Edema Neurological: Present: GCS=15, CN II-XII Intact, Speech Normal Skin: Present: Warm, Dry, Normal Color. No: Rashes Psychiatric: Present: Alert, Oriented x 3, Normal Insight, Normal Concentration Medical Decision Making ED Course and Treatment: 12/28/17 05:35 Impression: 82 year old female presents to generalized weakness, chest tightness, and shortness of breath. Plan: -- EKG -- Chest X-ray -- Labs, cardiac enzymes, BNP -- Duoneb -- Aspirin -- Nitroglycerin -- Morphine -- Reassess and disposition Progress Notes: Reviewed EKG, NSR at [address]pm[address] Non-specific ST/T wave changes. 12/28/17 06:29 Chest X-ray reviewed, shows increased pulmonary vascular markings. 12/28/17 07:05 Case was d/w .Accepts to his service. - Lab Interpretations Lab Results: 12/28/17 05:50 12/28/17 05:50 Lab Results 12/28/17 05:50: WBC 11.3 H, RBC 3.53, Hgb 9.8 L D, Hct 30.2 L, MCV 85.6, MCH 27.8, MCHC 32.5, RDW 15.6 H, Plt Count 455 H, MPV 9.7 12/28/17 05:50: Sodium 141, Potassium 4.5, Chloride 104, Carbon Dioxide 24, Anion Gap 17, BUN 32 H, Creatinine 1.4 H, Est GFR ( Amer) 44, Est GFR ( Non-Af Amer) 36, Random Glucose 231 H, Calcium 9.6, Total Bilirubin 0.4, AST 16 , ALT 23, Alkaline Phosphatase 76, Lactate Dehydrogenase 480, Total Creatine Kinase 52, Troponin I < 0.01, NT-Pro-B Natriuret Pep 1030 H, Total Protein 7.3, Albumin 4.2, Globulin 3.0, Albumin/Globulin Ratio 1.4 12/28/17 05:50: PT 10.5, INR 0.91 L, APTT 31.9 12/28/17 05:01: POC Glucose (mg/dL) 146 H - RAD Interpretation Radiology Orders: 12/28/17 05:35 CHEST PORTABLE [RAD] Stat - EKG Interpretation Interpreted by ED Physician: Yes Type: 12 lead EKG - Medication Orders Current Medication Orders: Discontinued Medications Albuterol/Ipratropium (Duoneb 3 Mg/0.5 Mg (3 Ml) Ud) 3 ml IH ONCE STA Stop: 12/28/17 05:45 Last Admin: 12/28/17 06:33 Dose: Aspirin (Aspirin) 325 mg PO ONCE STA Stop: 12/28/17 05:56 Last Admin: 12/28/17 06:05 Dose: 325 mg Morphine Sulfate (Morphine) 2 mg IVP STAT STA Stop: 12/28/17 05:54 Last Admin: 12/28/17 06:04 Dose: 2 mg IVP Administration Document 12/28/17 06:04 GIULIA (Rec: 12/28/17 06:05 GIULIA [facility] [id number]) Charges for Administration # of IVP Administrations 1 Nitroglycerin (Nitro-Bid 2% Oint) 1 ea TOP ONCE STA Stop: 12/28/17 05:54 Last Admin: 12/28/17 06:05 Dose: 1 ea - Scribe Statement The provider has reviewed the documentation as recorded by the Bob Antonio Provider Scribe Attestation: All medical record entries made by the Jetibtia were at my direction and personally dictated by me. I have reviewed the chart and agree that the record accurately reflects my personal performance of the history, physical exam, medical decision making, and the department course for this patient. I have also personally directed, reviewed, and agree with the discharge instructions and disposition. Disposition/Present on Arrival - Present on Arrival Any Indicators Present on Arrival: No History of DVT/PE: No History of Uncontrolled Diabetes: No Urinary Catheter: No History of Decub. Ulcer: No History Surgical Site Infection Following: None - Disposition Have Diagnosis and Disposition been Completed?: Yes Diagnosis: Acute CHF Disposition: HOSPITALIZED Disposition Time: 07:04 Patient Problems: Current Active Problems Problem Status Onset Acute CHF Acute Condition: STABLE
[2017-12-28] MEDS ORDERED: Albuterol-Ipratrop 3 mg / 0.5 (3 ml) UD ONE (05:36)
[2017-12-28] MEDS ORDERED: Albuterol-Ipratrop 3 mg / 0.5 (3 ml) UD IH STA (05:44)
[2017-12-28] MEDS ORDERED: Morphine 2 mg/2 mL syringe IVP STA (05:53)
[2017-12-28] MEDS ORDERED: Nitroglycerin 2% Ointment Foilpak UD TOP STA (05:53)
[2017-12-28 06:10] VITALS: RESP 18; O2SAT 100
[2017-12-28 06:11] LABS: MEAN CELL VOLUME 85.6 fl (80.0-105.0); MEAN CORPUSCULAR HEMOGLOBIN 27.8 pg (25.0-35.0); MEAN CORPUSCULAR HGB CONC 32.5 g/dl (31.0-37.0); MEAN PLATELET VOLUME 9.7 fl (7.0-11.0); RBC 3.53 10^6/uL (3.5-6.1); RED CELL DISTRIBUTION WIDTH 15.6 % (11.5-14.5); WHITE BLOOD COUNT 11.3 10^3/ul (4.5-11.0)
[2017-12-28 06:14] LABS: HEMOGLOBIN 9.8 g/dL (12.0-16.0)
[2017-12-28 06:18] LABS: ALB/GLOB RATIO 1.4 (1.1-1.8); ALBUMIN 4.2 g/dL (3.0-4.8); ALT/SGPT 23 U/L (7-56); AST/SGOT 16 U/L (14-36); BLOOD UREA NITROGEN 32 mg/dL (7-21); CALCIUM 9.6 mg/dL (8.4-10.5); GFR AFRICAN-AMERICAN 44; GFR NON-AFRICAN AMERICAN 36
[2017-12-28 06:25] LABS: PROTHROMBIN TIME 10.5 SECONDS (9.4-12.5)
[2017-12-28 06:26] LABS: INR 0.91 (0.93-1.08); PARTIAL THROMBOPLASTIN TIME 31.9 Seconds (25.1-36.5)
[2017-12-28 06:30] LABS: B-TYPE NATRIURETIC PEPTIDE 1030 pg/mL (0-450); TROPONIN I < 0.01 ng/mL
--- NOTE | 2017-12-28 08:14 | RAD ---
HISTORY: sob COMPARISON: 11/19/2017 FINDINGS: LUNGS: No active pulmonary disease. PLEURA: No significant pleural effusion identified, no pneumothorax apparent. CARDIOVASCULAR: Moderate vascular congestion OSSEOUS STRUCTURES: No significant abnormalities. VISUALIZED UPPER ABDOMEN: Normal. OTHER FINDINGS: None. IMPRESSION: Moderate vascular congestion
[2017-12-28 09:23] VITALS: BP 124/80; PULSE 86; TEMP 97.9
--- NOTE | 2017-12-28 14:28 | CARD ---
APPROVED REPORT EKG Measurement Heart [id number] <Conclusion> Normal sinus rhythm Nonspecific T wave abnormality Abnormal ECG
--- NOTE | 2017-12-28 15:00 | CON ---
DATE: 12/28/2017 HISTORY OF PRESENT ILLNESS: This is an 82-year-old woman who became weak with rubbery leg and inability to stand. She thought her blood sugar was low and called to the kitchen and got something out of the refrigerator. When the EMT arrived, her blood sugar was in the 100 range. She began feeling better. She was brought to the emergency room. Apparently, she complained of tightness in the chest, but she does not describe that symptom now. She is resting comfortably in the emergency room with her daughter at the bedside. There is no orthopnea, PND, syncope, loss of consciousness, palpitations, edema, claudication, fever, chills, cough, sputum production, hemoptysis, abdominal pain, nausea, vomiting, diarrhea, constipation, or melena. PAST MEDICAL HISTORY: Notable for diabetes. She states she has been eating less recently. Her blood sugar is often around in the 150 to 200 range. She is anemic, getting iron infusion and Procrit. She has a history of hypertension, hypothyroidism, chronic kidney disease, peripheral neuropathy, anxiety. An echocardiogram in 2014, showed mild MR and moderate TR with normal left ventricular function. Nuclear stress test at that time showed normal perfusion study with an ejection fraction of 69%. MEDICATIONS: At the time of admission include Crestor, glipizide, doxycycline, iron sulfate, Neurontin, Norvasc, Synthroid, Tradjenta, and metformin. ALLERGIES: THERE ARE NO MEDICATION ALLERGIES. SOCIAL HISTORY: She lives at home. She does not smoke. She does not drink alcohol significantly. FAMILY HISTORY: Noncontributory. REVIEW OF SYSTEMS: A 10-point review of systems is otherwise unremarkable except as noted above. PHYSICAL EXAMINATION: GENERAL: She is a well-developed elderly woman, lying on a stretcher in the emergency room, accompanied by her daughter. VITAL SIGNS: Notable for sinus rhythm 98 beats per minute, afebrile 147/65, respirations 18, O2 sat 100% on nasal cannula. HEENT: Reveal no neck vein distention, thyromegaly, or carotid bruits. Mucous membranes moist. Conjunctivae pink. NECK: Supple. LUNGS: Lung tolbert clear. HEART: Reveals normal first and second heart sounds. Soft systolic murmur along the left sternal border. ABDOMEN: Soft, bowel sounds present. No mass, organomegaly, tenderness, rebound, or guarding. No CVA tenderness. No palpable abdominal aortic aneurysm. EXTREMITIES: Reveal no cyanosis, clubbing, or edema. NEUROLOGIC: Awake, alert, and oriented. PSYCHIATRIC: Normal as to mood and affect. SKIN: Warm and dry. No rash or cellulitis. LABORATORY AND IMAGING: A portable chest x-ray is not interpreted yet. Lungs are clear. No infiltrates. No effusion. No CHF. EKG is not available. Apparently, it showed nonspecific ST-T wave changes with no acute changes, I will locate and review. White count is 11,300, hemoglobin 9.8, hematocrit 30.2, platelet count 455,000. PT 10.5, INR 0.91, PTT 31.9. Electrolytes normal. BUN 32, creatinine 1.4. Blood sugar 146 and 231. LFTs unremarkable. Troponin normal. BNP 1030. IMPRESSION: Julianna Lira is an 82-year-old woman who developed weak legs and could not walk. She felt her symptoms were due to hypoglycemia. She took food from the refrigerator and soda. When she was evaluated by EMT and in the emergency room, her blood sugars were in the 100 plus range. She feels better. She complained of chest tightness initially, but the symptom has resolved. The troponin is negative. I will track down her EKG. PLAN: She describes diminished appetite, possibly her diabetes medicines will have to be reduced. I will check her old records. She is going to telemetry. We will monitor her blood sugars closely. We will check stool for occult blood. Monitor I and O. I will follow along with you. Make additional recommendations based on her clinical course. Overall conservative course of cardiac care is anticipated. Prince Tse MD JORDAN
--- NOTE | 2017-12-28 20:54 | HP ---
DATE OF EXAM: 12/28/2017 CHIEF COMPLAINT AND HISTORY OF PRESENT ILLNESS: This is an 82-year-old female who has come into the hospital after she became unsteady on her feet. She is complaining of weakness. She felt that sugars were low. She had gone to her kitchen and had something to eat. She had activated EMS and was brought into the hospital. The patient says she is feeling better. She is awake and alert. She has not been eating as well as she according to her daughter at the bedside. She has no complaints of any fevers or chills. No headaches, no abdominal pain, no back pain, no dysuria, no frequency, no nocturia, no chest pain, no shortness of breath. REVIEW OF SYMPTOMS: All other review of symptoms are within normal limits except what was mentioned. ALLERGIES: SHE HAS NO KNOWN DRUG ALLERGIES. HOME MEDICATIONS: Glipizide, Synthroid, Crestor, Neurontin, Norvasc, iron, Tradjenta. PAST MEDICAL HISTORY: CKD stage III, peripheral arterial disease, diabetes type 2, hypothyroidism, iron deficiency anemia. PAST SURGICAL HISTORY: Cardiac cath about 10 years ago. SOCIAL HISTORY: She is a former smoker. She does not use drugs. She has no history of alcohol abuse. FAMILY HISTORY: Noncontributory. PHYSICAL EXAMINATION: VITAL SIGNS: The patient has a temperature of 97.9, pulse of 96, blood pressure of 124/80, respirations are 18, and O2 saturation of 100%. Height is 5 feet 4 inches. Weight is 130 pounds. BMI is 22.3. GENERAL: The patient lying in bed, uncomfortable, and in no acute distress. HEENT: Atraumatic and normocephalic. Anicteric sclerae. Moist mucosa. [place] conjunctivae. No oral lesions. NECK: No JVD, anterior and posterior adenopathy, thyromegaly, or bruits. CARDIOVASCULAR: S1 and S2 regular. No murmur, rubs, or gallop. LUNGS: Clear to auscultation bilaterally. No wheezes, rales, or rhonchi. ABDOMEN: Bowel sounds are positive. Soft, nontender and nondistended. No hepatosplenomegaly. No rebound and no guarding EXTREMITIES: No cyanosis, clubbing, or edema. NEUROLOGIC: No facial asymmetry. Tongue is midline. No uvula deviation. Power is 5/5 upper extremity and lower extremity. Sensation intact in upper extremity and lower extremity. PSYCHIATRIC: She is awake, alert and oriented x3. No anxiety or depression. She has normal affect. GENITOURINARY: No CVA tenderness. VASCULAR: 2+ pulses in the carotid pulses and pedal pulses. SKIN: No erythema or nodules SPINE: Shows normal curvature. LABORATORY DATA: Her labs have been reviewed. White count of 11.3, hemoglobin 9.8, and platelet count is 455. Chemistry shows sodium 141, potassium is 4.5. Creatinine is 1.4. Chest x-ray shows moderate vascular congestion. ASSESSMENT: 1. Fall secondary to hypoglycemia. 2. Iron-deficiency anemia. 3. Hypertension. 4. Diabetes type 2. 5. Chronic kidney disease, stage III. PLAN: The patient is currently comfortable. She mostly likely had hypoglycemia. When her fingersticks were checked, it was within the normal limits as she had something to eat. She does admit to not having regular meals. She is also on glipizide with CKD. I am concerned that this may be causing her hypoglycemia. The patient was advised to discontinue the glipizide. I did speak to the patient's daughter at the bedside. The patient is going to be discharged home. Her lungs are clear. She has no lower extremity edema. She does not clinically look like that she has acute CHF. Her BNP last month was 2700, this is probably her baseline BNP . She is going to continue her Norvasc at home. She was given aspirin. She was advised to come back to the hospital if her symptoms worsen. She is going to be discharged home and follow up as an outpatient in the office in 1 to 2 weeks. Indio Roman MD
== END 2017-12-28 09:22 | disposition home or self-care (01) ==
LOC: ED 04:46 → UNDOADMOB 07:01 → ERH 07:01
DX: I50.9 Heart failure, unspecified (principal); E11.9 Type 2 diabetes mellitus without complications; I12.9 Hypertensive chronic kidney disease with stage 1 through stage 4 chronic kidney disease, or unspecified chronic kidney disease; N18.3 Chronic kidney disease, stage 3 (moderate); Z87.891 Personal history of nicotine dependence; E03.9 Hypothyroidism, unspecified
CPT/HCPCS: 71045; 80053; 82550; 82948; 83615; 83880; 84484; 85027; 85610; 85730; 93005; 96374; 99285; J2270

== ENCOUNTER 2018-01-01 15:24 | Inpatient (IN) | payer MEDICARE, OTHER ==
[2018-01-01 15:40] VITALS: BMI 25.4
[2018-01-01] MEDS ORDERED: Nitroglycerin 2% Ointment Foilpak UD TOP STA (15:44)
--- NOTE | 2018-01-01 15:50 | ED PDOC ---
Arrival/HPI - General Chief Complaint: Chest Pain Time Seen by Provider: 01/01/18 15:43 Historian: Patient, Family (daughter) - History of Present Illness Narrative History of Present Illness (Text): 01/01/18 15:48 pt p/w + < 1 day onset of epigastric/substernal chest tightness, at most pain is rated at 9/10, waxing and waning and non-radiating; pt states mild sob with faint nausea; pt with similar discomfort in the past but had been under control ; pt had seen Dr Matthew in the past as well as ~ 3-4 days ago when patient was in the Emergency department and was evaluated for acute hypoglycemia; pt is due for outpt ECHO in 2 weeks; pt states + dizziness/lightheadedness, + mild weakness; no fever/chills/sweat, no palpitations, no abd pain, no vomiting, no numbness/tingling, no urinary/bowel changes, no fall/trauma/sick contact, no travel; pt denied LOC pt is here for further eval pt's without other complaints. PCP: Dr Salvador cardiology: Dr Matthew last stress test was ~ 2014 Time/Duration: 24 hours Symptom Onset: Sudden Symptom Course: Worsening Quality: Tightness Severity Level: 9, Severe Activities at Onset: Rest Context: Home Past Medical History - Provider Review Nursing Documentation Reviewed: Yes - Travel History Have you recently traveled outside [place] w/in the past 3 mons?: No - Past History Past History: No Previous - Infectious Disease Hx of Infectious Diseases: None - Tetanus Immunization Tetanus Immunization: Unknown - Reproductive Menopause: Yes Currently : No - Cardiac Hx Peripheral Vascular Disease: Yes Other/Comment: hyperlipidemia - Pulmonary Hx Pneumonia: Yes (x2) - Neurological Hx Neurological Disorder: No Other/Comment: diabetic neuropathy, numbness, tingling ble - HEENT Hx HEENT Disorder: Yes (glasses) Hx Cataracts: Yes (b/l sx) - Renal Hx Renal Disorder: No - Endocrine/Metabolic Hx Diabetes Mellitus Type 2: Yes - Hematological/Oncological Hx Blood Disorders: No Other/Comment: BLOOD TRANSFUSION - Integumentary Hx Dermatological Disorder: No - Musculoskeletal/Rheumatological Hx Falls: Yes - Gastrointestinal Hx Gastrointestinal Disorders: No - Genitourinary/Gynecological Hx Genitourinary Disorders: No - Psychiatric Hx Anxiety: Yes Hx Substance Use: No - Surgical History Hx Cardiac Catheterization: Yes (10 years ago) Hx Orthopedic Surgery: Yes (left ankle 04/2015 wears brace) - Anesthesia Hx Anesthesia: Yes Hx Anesthesia Reactions: No Hx Malignant Hyperthermia: No - Suicidal Assessment Feels Threatened In Home Enviroment: No Family/Social History - Physician Review Nursing Documentation Reviewed: Yes Family/Social History: No Known Family HX Smoking Status: Never Smoked Hx Alcohol Use: No Hx Substance Use: No Hx Substance Use Treatment: No Allergies/Home Meds Allergies/Adverse Reactions: Allergies No Known Allergies Allergy (Verified 01/01/18 15:37) Home Medications: Home Meds Medication Instructions Recorded Confirmed Levothyroxine [Synthroid] 50 mcg PO DAILY 03/29/15 01/01/18 Rosuvastatin Calcium [Crestor] 10 mg PO DAILY 03/29/15 01/01/18 Gabapentin [Neurontin] 300 mg PO TID PRN 02/12/17 01/01/18 amLODIPine [Norvasc] 5 mg PO DAILY 11/19/17 01/01/18 Ferrous Sulfate [Feosol] 325 mg PO DAILY 12/28/17 01/01/18 Linagliptin [Tradjenta] 5 mg PO DAILY 12/28/17 01/01/18 Review of Systems - Review of Systems Constitutional: Fatigue. absent: Weight Change, Fevers, Night Sweats Eyes: Normal ENT: Normal Respiratory: SOB. absent: Cough Cardiovascular: Chest Pain. absent: Palpitations Gastrointestinal: Nausea. absent: Abdominal Pain, Vomiting Genitourinary Female: Normal Musculoskeletal: Normal Skin: Normal Neurological: Dizziness Endocrine: Normal Hemo/Lymphatic: Normal Psychiatric: Normal Physical Exam - Physical Exam Narrative Physical Exam (Text): 01/01/18 17:50 General: alert/awake, GCS = 15, oriented x 3, resting in bed, uncomfortable, cooperative, interactive; NAD Head: NC/AT; mild bi-temporal wasting EYE: PERRLA, EOMI, sclera anicteric, no nystagmus, no photophobia; visual field intact b/l Facial: WNL Oral: uvula/tongue are midline, no exudate/lesions, no drooling/stridor, no dysphonia; intact dentitions; moist oral mucosa NECK: intact ROM, no midline tenderness, no nuchal rigidity, no meningeal signs ; no step off Chest: CTA b/l, no w/r/r; no tachypenia, no accessory muscle use noted Cardiac: +S1, +S2, no r/r, no tachycardia; + 2/6 systolic murmur Abdominal: +BS, soft/nd/nt, well nourished patient; no masses/rebound/guarding/ rigidity; no bai's sign, no mcburney's point tenderness Extremities: intact ROM, strength 5/5 grossly intact in all limbs, neurovasc intact b/l; + ambulatory; reflex +2/2; no pitting edema noted b/l, no neel's sign b/l BACK: no step off, no midline tenderness, NO crepitus, no gross deformities noted; Intact ROM SKIN: cap refill < 1 sec, no ulcerations, no petechiae, no rashes; no pallor NEURO: CNII-XII WNL, no facial asymmetries, no slurr speech, oriented x 3 NIH stroke scale ~ 0 Psych: normal insight, normal affect; follows command with ease Vital Signs Reviewed: Yes Vital Signs Pulse Resp BP Pulse Ox 01/01/18 19:47 88 18 129/56 L 95 01/01/18 18:28 146/96 H 01/01/18 18:16 96 H 18 146/96 H 95 01/01/18 17:50 92 H 18 156/82 H 93 L 01/01/18 16:09 94 H 18 160/79 H 95 Temperature: Afebrile Blood Pressure: Hypertensive Pulse: Regular Respiratory Rate: Normal Appearance: Positive for: Well-Appearing, Non-Toxic, Uncomfortable. No: Ill- Appearing, Unkept Pain Distress: None Mental Status: Positive for: Alert and Oriented X 3 - Systems Exam Head: Present: Atraumatic, Normocephalic Medical Decision Making ED Course and Treatment: 01/01/18 15:49 Impression: epigastric/chest pain i have consider all the differential diagnosis regarding pt's chief medical complaints/clinical findings, including but are not limited to: epigastric/ chest pain; r/o ACS, r/o abd pathology A/P: epigastric/chest pain - labs - iv - acs eval - xray - us - supportive care - observe/reevaluation 1630 pt is comfortable currently pt continues to have some chest tightness/discomfort pt is not in any resp distress pt is awaiting results 1655 with abnl lab results and abnl cxr, will recommend patient for admission: ACS r/ o, abnl pleural effusion, and possible CHF exacerbation 1700 pt is made aware of her medical results pt agrees with admission paging dr Roman 01/01/18 [address] Roman, made aware, agrees with admission; would like to consult cards (dr Matthew) and pulm (dr Hansen) Re-evaluation Time: 17:19 Reassessment Condition: Improving,but remains with symptoms - Critical Care Critical Care Minutes: 30 minutes Critical Care Time: Excluding Proc Time - Lab Interpretations Lab Results: 01/01/18 16:15 01/01/18 16:15 Lab Results 01/01/18 17:09: POC Glucose (mg/dL) 165 H 01/01/18 16:54: Urine Color Yellow, Urine Appearance Sl cloudy, Urine pH 6.0, Ur Specific [place] <= 1.005, Urine Protein 30 H, Urine Glucose (UA) 100 H, Urine Ketones Negative, Urine Blood Trace-lysed H, Urine Nitrate Negative, Urine Bilirubin Negative, Urine Urobilinogen 0.2, Ur Leukocyte Esterase Trace H , Urine RBC 0 - 2, Urine WBC 1 - 3, Ur Epithelial Cells 0 - 2, Urine Bacteria Rare 01/01/18 16:15: TSH 3rd Generation 1.51 01/01/18 16:15: Sodium 139, Potassium 4.4, Chloride 105, Carbon Dioxide 22, Anion Gap 16, BUN 25 H, Creatinine 1.5 H, Est GFR ( Amer) 40, Est GFR ( Non-Af Amer) 33, Random Glucose 180 H, Calcium 9.3, Magnesium 1.9, Total Bilirubin 0.3, AST 13 L, ALT 20, Alkaline Phosphatase 74, Lactate Dehydrogenase 519, Total Creatine Kinase 50, Troponin I < 0.01, NT-Pro-B Natriuret Pep 1570 H , Total Protein 7.2, Albumin 4.2, Globulin 3.0, Albumin/Globulin Ratio 1.4, Lipase 36 01/01/18 16:15: PT 11.1, INR 0.97, APTT 30.4 01/01/18 16:15: WBC 9.5, RBC 3.46 L, Hgb 9.5 L, Hct 29.5 L, MCV 85.3, MCH 27.5, MCHC 32.2, RDW 15.8 H, Plt Count 456 H, MPV 9.6, Gran % 72.8 H, Lymph % (Auto) 18.3 L, [place] % (Auto) 6.0, Eos % (Auto) 2.2, Baso % (Auto) 0.7, Gran # 6.92 H, Lymph # (Auto) 1.7, [place] # (Auto) 0.6, Eos # (Auto) 0.2, Baso # (Auto) 0.07 I have reviewed the lab results: Yes Interpretation: Abnormal lab values (elevated BUN/creat) - RAD Interpretation Narrative RAD Interpretations (Text): 01/01/18 17:05 Abdomen Ultrasound reviewed, shows: LIVER: Measures 14.2 cm. Liver demonstrates smooth contour though increased echotexture suggesting fatty infiltration ; other infiltrative hepatocellular disease process not excluded. No obvious mass or collection seen on images presented. . No intrahepatic bile duct dilatation. GALLBLADDER: Previously described gallstones and/or, polyps or sludge balls within the gallbladder lumen not visualized on this exam with any certainty COMMON BILE DUCT: Measures 2.5 mm. No stones. No dilatation. PANCREAS: Unremarkable as visualized. No mass. No ductal dilatation. RIGHT KIDNEY: Measures 9.7 x 5.0 x 5.1cm. Normal echogenicity. No calculus, mass, or hydronephrosis. LEFT KIDNEY: Measures 9.3 x 4.9 x 5.0cm. Normal echogenicity. No calculus, mass, or hydronephrosis. SPLEEN: Normal in size and contour. No mass. AORTA: No aneurysmal dilatation. IVC: Unremarkable. OTHER FINDINGS: Left-sided pleural effusion. IMPRESSION: Left-sided pleural effusion. Suspect mild fatty hepatic infiltration however other infiltrative hepatic cellular disease process not excluded. . Previously described gallstones and/or, polyps or sludge balls within the gallbladder lumen not visualized on this exam with any certainty prelim result: Chest X-Ray - + left pleural effusion Radiology Orders: 01/01/18 15:44 CHEST TWO VIEWS (PA/LAT) [RAD] Stat 01/01/18 15:47 ABDOMEN COMPLETE [US] Stat Lab Aid: Radiologist - EKG Interpretation EKG Interpretation (Text): 01/01/18 21:42 NSR at 95 bpm, normal axis, no ectopy, diffuse low voltage inf leads, qs in leads III, inverted/biphasic T noted to lead III, V5-6, no st changes, ABNL EKG ; unchanged compare with old ekg 11/2017 Interpreted by ED Physician: Yes Type: 12 lead EKG Comparison: Similar to previous EKG - Medication Orders Current Medication Orders: Discontinued Medications Aspirin (Aspirin) 325 mg PO STAT STA Stop: 01/01/18 15:45 Last Admin: 01/01/18 15:53 Dose: 325 mg Furosemide (Lasix) 40 mg IVP STAT STA Stop: 01/01/18 17:54 Last Admin: 01/01/18 18:28 Dose: 40 mg MAR Blood Pressure Document 01/01/18 18:28 OCS (Rec: 01/01/18 18:29 OCS [id number]) Blood Pressure Blood Pressure (100/60-150/90) 146/96 IVP Administration Document 01/01/18 18:28 OCS (Rec: 01/01/18 18:29 OCS [id number]) Charges for Administration # of IVP Administrations 1 Ceftriaxone Sodium (Rocephin 1 Gram Ivpb) 1 gm in 100 mls @ 200 mls/hr IVPB STAT STA PRN Reason: Protocol Stop: 01/01/18 17:36 Last Admin: 01/01/18 17:16 Dose: 200 mls/hr eMAR Start Stop Document 01/01/18 17:16 OCS (Rec: 01/01/18 17:16 OCS [id number]) Intravenous Solution Start Date 01/01/18 Start Time 17:16 End Date 01/01/18 End time 17:46 Total Infusion Time 30 Azithromycin (Zithromax 500mg In Ns) 500 mg in 250 mls @ 167 mls/hr IVPB STAT STA PRN Reason: Protocol Stop: 01/01/18 18:37 Last Admin: 01/01/18 18:29 Dose: 167 mls/hr eMAR Start Stop Document 01/01/18 18:29 OCS (Rec: 01/01/18 18:29 OCS [id number]) Intravenous Solution Start Date 01/01/18 Start Time 18:29 End Date 01/01/18 End time 19:59 Total Infusion Time 90 Nitroglycerin (Nitro-Bid 2% Oint) 1 ea TOP STAT STA Stop: 01/01/18 15:45 Last Admin: 01/01/18 15:53 Dose: 1 ea Tramadol HCl (Ultram) 50 mg PO STAT STA Stop: 01/01/18 17:16 Last Admin: 01/01/18 17:37 Dose: 50 mg MAR Pain Assessment Document 01/01/18 17:37 EWO (Rec: 01/01/18 17:37 EWO [id number]) Pain Reassessment Is this a pain reassessment? No - Scribe Statement The provider has reviewed the documentation as recorded by the Scribtia Kwok All medical record entries made by the Scribtia were at my direction and personally dictated by me. I have reviewed the chart and agree that the record accurately reflects my personal performance of the history, physical exam, medical decision making, and the department course for this patient. I have also personally directed, reviewed, and agree with the discharge instructions and disposition. Disposition/Present on Arrival - Present on Arrival Any Indicators Present on Arrival: No History of DVT/PE: No History of Uncontrolled Diabetes: No Urinary Catheter: No History of Decub. Ulcer: No History Surgical Site Infection Following: None - Disposition Have Diagnosis and Disposition been Completed?: Yes Diagnosis: Chest pain with minimal risk for cardiac etiology, Pleural effusion, left, CHF (congestive heart failure) Disposition: HOSPITALIZED Disposition Time: 17:52 Patient Plan: Admission, Telemetry Patient Problems: Current Active Problems Problem Status Onset Chest pain with minimal risk for cardiac etiology Acute Pleural effusion, left Acute CHF (congestive heart failure) Acute Condition: STABLE
[2018-01-01 16:27] LABS: BASO # 0.07 K/mm3 (0.0-2.0); BASO % 0.7 % (0.0-3.0); EOS # 0.2 (0.0-0.7); EOS % 2.2 % (1.5-5.0); GRAN # 6.92 (1.4-6.5); GRAN % 72.8 % (50.0-68.0); HEMOGLOBIN 9.5 g/dL (12.0-16.0); LYMPH # 1.7 (1.2-3.4); LYMPH % 18.3 % (22.0-35.0); MEAN CELL VOLUME 85.3 fl (80.0-105.0); MEAN CORPUSCULAR HEMOGLOBIN 27.5 pg (25.0-35.0); MEAN CORPUSCULAR HGB CONC 32.2 g/dl (31.0-37.0); MEAN PLATELET VOLUME 9.6 fl (7.0-11.0); MONO # 0.6 (0.1-0.6); RBC 3.46 10^6/uL (3.5-6.1); RED CELL DISTRIBUTION WIDTH 15.8 % (11.5-14.5); WHITE BLOOD COUNT 9.5 10^3/ul (4.5-11.0)
[2018-01-01 16:40] LABS: ALB/GLOB RATIO 1.4 (1.1-1.8); ALBUMIN 4.2 g/dL (3.0-4.8); ALT/SGPT 20 U/L (7-56); AST/SGOT 13 U/L (14-36); BLOOD UREA NITROGEN 25 mg/dL (7-21); CALCIUM 9.3 mg/dL (8.4-10.5); GFR AFRICAN-AMERICAN 40; GFR NON-AFRICAN AMERICAN 33; LIPASE 36 U/L (23-300)
[2018-01-01 16:44] LABS: INR 0.97 (0.93-1.08); PARTIAL THROMBOPLASTIN TIME 30.4 Seconds (25.1-36.5); PROTHROMBIN TIME 11.1 SECONDS (9.4-12.5)
[2018-01-01 16:47] LABS: B-TYPE NATRIURETIC PEPTIDE 1570 pg/mL (0-450)
[2018-01-01 16:48] LABS: TROPONIN I < 0.01 ng/mL
--- NOTE | 2018-01-01 17:03 | US ---
HISTORY: Epigastric pain COMPARISON: Comparison made with prior CT scan abdomen and pelvis 03/31/2015 TECHNIQUE: Sonographic evaluation of the abdomen. FINDINGS: LIVER: Measures 14.2 cm. Liver demonstrates smooth contour though increased echotexture suggesting fatty infiltration ; other infiltrative hepatocellular disease process not excluded. No obvious mass or collection seen on images presented. . No intrahepatic bile duct dilatation. GALLBLADDER: Previously described gallstones and/or, polyps or sludge balls within the gallbladder lumen not visualized on this exam with any certainty COMMON BILE DUCT: Measures 2.5 mm. No stones. No dilatation. PANCREAS: Unremarkable as visualized. No mass. No ductal dilatation. RIGHT KIDNEY: Measures 9.7 x 5.0 x 5.1cm. Normal echogenicity. No calculus, mass, or hydronephrosis. LEFT KIDNEY: Measures 9.3 x 4.9 x 5.0cm. Normal echogenicity. No calculus, mass, or hydronephrosis. SPLEEN: Normal in size and contour. No mass. AORTA: No aneurysmal dilatation. IVC: Unremarkable. OTHER FINDINGS: Left-sided pleural effusion. IMPRESSION: Left-sided pleural effusion. Suspect mild fatty hepatic infiltration however other infiltrative hepatic cellular disease process not excluded. . Previously described gallstones and/or, polyps or sludge balls within the gallbladder lumen not visualized on this exam with any certainty
[2018-01-01] MEDS ORDERED: cefTRIAXone 1 gm 1 GM/100 ML BAG IVPB STA (17:07)
[2018-01-01] MEDS ORDERED: Oxycodone/Acetaminophen 5/325 mg Tab PO STA (17:08)
[2018-01-01] MEDS ORDERED: Azithromycin 500MG/NS 250ml 500 MG/250 ML BAG IVPB STA (17:08)
[2018-01-01 17:15] LABS: URINE BILIRUBIN NEGATIVE (NEGATIVE); URINE BLOOD TRACE-LYSED (NEGATIVE); URINE GLUCOSE (UA) 100 mg/dL (NEGATIVE); URINE LEUKOCYTE ESTERASE TRACE Leu/uL (NEGATIVE); URINE PROTEIN 30 mg/dL (<30 mg/dL); URINE UROBILINOGEN 0.2 E.U./dL (<1 E.U./dL)
[2018-01-01 17:21] LABS: URINE APPEARANCE SL CLOUDY (CLEAR); URINE COLOR YELLOW (YELLOW)
[2018-01-01 17:35] LABS: URINE EPITHELIAL CELLS 0 - 2 /hpf (0-5); URINE RBC 0 - 2 /hpf (0-2)
[2018-01-01 17:36] LABS: URINE BACTERIA RARE (NEG)
[2018-01-02] MEDS: Insulin Reg-LOW-Coverage SC SCH ×4 (07:30→21:48)
[2018-01-02] MEDS: Levothyroxine 50 MCG TAB PO SCH (08:30)
[2018-01-02] MEDS: LINAGLIPTIN 5 MG PO SCH (09:32)
--- NOTE | 2018-01-02 10:17 | RAD ---
HISTORY: chest pain COMPARISON: No prior. TECHNIQUE: Chest PA and lateral FINDINGS: LUNGS: Poor inspiration with low lung volumes, crowded bronchovascular markings and mild bibasilar atelectasis. The interstitial markings are also increased and coarsened particularly in the mid to lower lung zones. Findings consistent with mild pulmonary vascular congestion. Small bilateral effusions left larger than right. PLEURA: As above. No pneumothorax apparent. CARDIOVASCULAR: Heart upper limits of normal in size OSSEOUS STRUCTURES: No significant abnormalities. VISUALIZED UPPER ABDOMEN: Normal. OTHER FINDINGS: None. IMPRESSION: Poor inspiration with low lung volumes, crowded bronchovascular markings and mild bibasilar atelectasis. The interstitial markings are also increased and coarsened particularly in the mid to lower lung zones. Findings consistent with mild pulmonary vascular congestion. Small bilateral effusions left larger than right.
--- NOTE | 2018-01-02 15:45 | CARD ---
APPROVED REPORT EKG Measurement Heart [id number] <Conclusion> Normal sinus rhythm Normal ECG
--- NOTE | 2018-01-02 17:09 | CT ---
PROCEDURE: CT chest dated 01/02/2018 HISTORY: Pneumonia vs effusion vs mass COMPARISON: Comparison made with chest radiograph 01/01/2018. Comparison also made with CT scan abdomen pelvis 03/31/2015 which imaged both lung bases. TECHNIQUE: Contiguous axial images were obtained through the chest without intravenous contrast enhancement. Sagittal and coronal reconstructions were performed. Radiation dose (DLP): 300.66 mGy-cm. This CT exam was performed using one or more of the following dose reduction techniques: Automated exposure control, adjustment of the mA and/or kV according to patient size, and/or use of iterative reconstruction technique. . FINDINGS: LUNGS: Mild pulmonary vascular congestive changes with atelectasis small to medium-sized bilateral effusions left slightly larger than right and mild bibasilar atelectasis left greater than right. . MEDIASTINUM: Heart is enlarged. No significant pericardial effusion. Ascending thoracic aorta measures approximately 2.7 cm and descending thoracic aorta measures approximately 2.2 cm. Pulmonary trunk measures approximately 2.8 cm. . Central airways midline and patent. No large central endoluminal lesions. There is a small hiatal hernia. There appears to be enlarged mediastinal lymph node in the mid and right precarinal region measuring approximately 18 mm. . There are at least 2 lymph nodes adjacent to the left aspect of the aortic arch with the largest measuring approximately 11 mm. Another prevascular lymph nodes seen just dorsal to the crossing left brachiocephalic vein which measures approximately 7 mm. Evaluation for hilar adenopathy is limited due to the lack of circulating intravenous contrast material. PLEURA: As above. No pneumothorax BONES: No mild multilevel degenerative spondylosis of the thoracic spine. There are no acute compression fractures nor retropulsed fragments. There is a small elliptical shaped sclerotic lesion within the posterior superior aspect of the T8 segment likely representing bone island or osteoma ; and there is a history of malignancy in this patient, consider follow-up bone scan. The degenerative spondylosis lower cervical spine. UPPER ABDOMEN: Note made of multiple small hyperdense on masslike lesions along the endo luminal surface of the gallbladder. Findings could represent adherent gallbladder polyps versus adherent sludge or gallstones ; rule out gallbladder carcinoma. Followup gallbladder ultrasound is recommended for further evaluation. OTHER FINDINGS: None. IMPRESSION: Pulmonary vascular congestion with bilateral effusions and bibasilar atelectasis left larger than right. Several on small to borderline mediastinal lymph nodes the largest measuring approximately 18 mm in the precarinal region. Clinic correlation recommended. Multiple small hyperdense foci seen scattered along the luminal surface of the gallbladder ; findings are of uncertain etiology though differential diagnosis would include polyps, adherent gallstones or sludge balls. The possibility of gallbladder carcinoma not excluded. Recommend followup gallbladder ultrasound. Small sclerotic focus T8 segment likely representing bone island or osteoma. There is a history of malignancy this patient, consider follow-up bone scan.
--- NOTE | 2018-01-02 21:27 | CON ---
DATE: 01/02/2018 PULMONARY CONSULTATION LOCATION: Room 368, bed 1. HISTORY OF PRESENT ILLNESS: This is a 82-year-old sudha woman, who presented to the emergency room with epigastric and substernal chest pain. She is currently being followed by Dr. Curt Salvador. She had an appointment to see Dr. Tse for a similar discomfort that she had in the past. The patient has a history of pneumonia within the last 2 months, this resolved without problems, and she has been breathing comfortably afterwards. The patient is a nonsmoker. She has no occupational exposure. There are no other complaints at this time. The patient does not have pleuritic chest pain. There were no problems in her lower extremities. She was seen in the emergency room, and I am the first to see her on the floor. PAST MEDICAL HISTORY: Negative. She is menopausal. She has peripheral vascular disease. She had 2 episodes of pneumonia in the past. She has type 2 diabetes mellitus. FAMILY HISTORY: Negative. SOCIAL HISTORY: She has no occupational exposure. She never smoked. No travel history. No substance abuse. ALLERGIES: NO KNOWN ALLERGIES. HOME MEDICATIONS: Synthroid, Crestor, Neurontin, Norvasc, Feosol, Tradjenta. REVIEW OF SYSTEMS: Complete review of systems has taken place. There are no significant abnormalities. The patient denies shortness of breath or cough. There are no palpitations. The patient has diabetes mellitus, which seems to be adequately controlled according to the patient. No additional information obtained. All other systems negative. PHYSICAL EXAMINATION: GENERAL: The patient is sitting comfortably, very pleasant, in no acute distress. There is no pain at the present time. She is awaiting Dr. Roman to see her and is awaiting for the support associate Dr. Tse and Dr. Leblanc to see her as well. She is awake and alert, and oriented. VITAL SIGNS: Stable, with heart rate of 80, respiratory rate 16, blood pressure 130/60, pulse ox 96% on room air. HEENT: Normocephalic, atraumatic. Eyes: PERRLA. EOMs full. Conjunctivae pink. NECK: Supple. No JVD. No lymphadenopathy. No bruit. HEART: Regular rhythm. S1 and S2, without gallop or rub. There is a soft systolic ejection murmur at the lower left sternal border. CHEST: Clear to percussion and auscultation. No rales, rhonchi or wheezes. There is dullness at the left base. ABDOMEN: Soft. Bowel sounds normoactive, without mass, guarding, rebound or organomegaly. EXTREMITIES: Reveal no clubbing, cyanosis or edema. SKIN: No rash or excoriation. NEUROLOGIC: Exam grossly intact. No focal findings. LABORATORY DATA: Show a white count of 9500, hemoglobin of 9.5. Coagulation normal. Chemistries, no abnormalities noted. Urine, proteinuria. EKG, normal sinus rhythm, nonspecific ST-T wave changes. Chest x-ray reviewed by myself, not officially read as yet, shows no significant cardiomegaly, some small left pleural effusion and/or density, this cannot be fully evaluated on chest x-ray. IMPRESSION: 1. Status post chest pain. 2. Left pleural effusion. 3. Rule out coronary artery disease. 4. Rule out underlying left lower lobe mass. PLAN: Would suggest the echocardiogram already planned to look for left ventricular failure and suggest BNP . A CT of the chest will be ordered to better define the abnormalities seen at the left base. If necessary, a diagnostic thoracentesis may be required. Must rule out additional pathology. We will stand ready to see her again once initial testing is in and the patient is examined by Cardiology. Thank you for the opportunity to see this sudha patient. Uriel Cornelius MD MTDJane
--- NOTE | 2018-01-02 22:59 | HP ---
DATE OF EXAM: 01/02/2018 CHIEF COMPLAINT AND HISTORY OF PRESENT ILLNESS: This is an 82-year-old female who is coming into the hospital complaining of substernal chest pain below her breast bilaterally. She says she has been having this pain on and off, sometimes worse when she lays down. The patient had been seeing Dr. Tse. She was supposed to get an echo. She says the pain was about 9/10. It was waxing and waning. It did not radiate to anywhere. She had mild shortness of breath. She denies any chills. No headaches. She sometimes gets lightheaded. She has no weakness in the arms or the legs. No nausea or vomiting. REVIEW OF SYMPTOMS: All other review of symptoms are within normal limits except that was mentioned. ALLERGIES: NO KNOWN DRUG ALLERGIES. MEDICATIONS: Her home medications has been reviewed on the [facility]. PAST MEDICAL HISTORY: CKD stage III, peripheral arterial disease, diabetes type 2, hypothyroidism, iron deficiency anemia. PAST SURGICAL HISTORY: Cardiac cath about 10 years ago. SOCIAL HISTORY: She is a former smoker. She does not use drugs. She has no history of alcohol abuse. FAMILY HISTORY: Noncontributory. PHYSICAL EXAMINATION: VITAL SIGNS: Temperature is 97.8, pulse of 82, blood pressure 135/65, respirations 20, O2 saturation 95%. Height is 5 feet 1 inch, weight is 135 pounds, BMI is 25.5. GENERAL: The patient lying in bed, uncomfortable, and in no acute distress. HEENT: Atraumatic and normocephalic. Anicteric sclerae. Moist mucosa. [place] conjunctivae. No oral lesions. NECK: No JVD, anterior and posterior adenopathy, thyromegaly, or bruits. CARDIOVASCULAR: S1 and S2 regular. No murmur, rubs, or gallop. LUNGS: Clear to auscultation bilaterally. No wheezes, rales, or rhonchi. ABDOMEN: Bowel sounds are positive. Soft, nontender and nondistended. No hepatosplenomegaly. No rebound and no guarding EXTREMITIES: No cyanosis, clubbing, or edema. NEUROLOGIC: No facial asymmetry. Tongue is midline. No uvula deviation. Power is 5/5 upper extremity and lower extremity. Sensation intact in upper extremity and lower extremity. PSYCHIATRIC: She is awake, alert and oriented x3. No anxiety or depression. She has normal affect. GENITOURINARY: No CVA tenderness. VASCULAR: 2+ pulses in the carotid pulses and pedal pulses. SKIN: No erythema or nodules. SPINE: Shows normal curvature. LABS: White count of 9.5, hemoglobin 9.5, platelet count is 456. Chemistry shows creatinine of 1.5, magnesium is 1.9, albumin is 4.2. Urine shows blood that is trace, nitrates are negative, bilirubin is negative. INR is 0.97. Chest x-ray done shows poor inspiration with low lung volumes. There is small bilateral pleural effusion, left greater than right. Abdominal ultrasound done shows left-sided pleural effusion. There is mild fatty infiltrate, possible gallstones in the gallbladder. ASSESSMENT: 1. Chest pain. 2. Hypertension. 3. Diabetes type 2. 4. Chronic kidney stage III. 5. Left-sided pleural effusion, small. PLAN: The patient is currently comfortable. She is going to be admitted to the hospital. We will have Dr. Tse to evaluate the patient and Dr. Hansen. The patient is on iron replacement. She is going to be on Neurontin for neuropathy. She is on Norvasc for hypertension. She is on Synthroid for hypothyroidism. She has had two troponins that have been negative. We will await further input from Dr. Tse and Benji. She is on a heart-healthy diet. She may need a stress test. Indio Roman MD
[2018-01-03] MEDS: Insulin Reg-LOW-Coverage SC SCH ×4 (08:32→21:19)
[2018-01-03] MEDS: Levothyroxine 50 MCG TAB PO SCH (08:33)
[2018-01-03] MEDS: LINAGLIPTIN 5 MG PO SCH (09:21)
[2018-01-03 10:39] LABS: ALB/GLOB RATIO 1.5 (1.1-1.8); ALBUMIN 4.5 g/dL (3.0-4.8); CALCIUM 9.7 mg/dL (8.4-10.5)
[2018-01-03] MEDS ORDERED: Barium Sulfate Susp 2.1% w/v, 2.0% w/w 450 mL Bottle PO ONE ×2 (10:45)
--- NOTE | 2018-01-03 12:17 | CP.PCM.CON ---
<Akua Aguirre - Last Filed: 01/03/18 13:19> History of Present Illness - History of Present Illness History of Present Illness: GI consult for Nikky Wood PGY2 Reason for consult: Atypical chest pain and anemia This is an 82yo female with past medical history of CKD, iron deficiency anemia , PAD, NIDDM, hypothyroidism who came to the ED for pain in her chest. Patient reports the pain is located under her breast and feels like a tightening feeling that radiates to her back. She states it is intermittent and takes Ibuprofen on average twice per week for the pain. This pain has been on and off for several years. She denies shortness of breath, nausea/vomiting/diarrhea, vision changes, fever/chills, dysuria or hematuria. She had an colonoscopy with Dr. Arellano in 2011. Patient was evaluated for iron deficiency anemia in [address] Cha and Dr[address] Barry. Patient was supposed to have a colonoscopy as outpatient which she has not done yet. Stool was negative for occult blood at this time. Peripheral smear in 2014 showed spherocytosis. She does take PO Iron at home and denies any melena or blood in stool. In ED, EKG showed NSR. CXR showed L pleural effusion. CT chest was ordered which showed small hyperdensities along the luminal surface of the gallbladder, pulm vasc congestion with bilateral effusions. Abdominal U/S showed 2.5mm CBD, no evidence of stones. Past medical history: HTN, PAD, NIDDM, hypothyroidism, CKD stage IIIb, Iron deficiency anemia Past surgical history: Cardiac cath Home meds: As per MAR Allergies: NKDA Social history: Former smoker, denies EtOH or drug use. Family history: non-contributory PMD: Dr. Salvador Cardio: Dr. Tse Review of Systems - Review of Systems All systems: reviewed and no additional remarkable complaints except Review of Systems: 12 point ROS reviewed as per HPI and is otherwise negative. Past Patient History - Infectious Disease Hx of Infectious Diseases: None - Tetanus Immunizations Tetanus Immunization: Unknown - Past Social History Smoking Status: Never Smoked - CARDIAC Hx Peripheral Vascular Disease: Yes Other/Comment: hyperlipidemia - PULMONARY Hx Pneumonia: Yes (x2) - NEUROLOGICAL Hx Neurological Disorder: No Other/Comment: diabetic neuropathy, numbness, tingling ble - HEENT Hx HEENT Problems: Yes (glasses) Hx Cataracts: Yes (b/l sx) - RENAL Hx Chronic Kidney Disease: No - ENDOCRINE/METABOLIC Hx Diabetes Mellitus Type 2: Yes - HEMATOLOGICAL/ONCOLOGICAL Hx Blood Disorders: No Other/Comment: BLOOD TRANSFUSION - INTEGUMENTARY Hx Dermatological Problems: No - MUSCULOSKELETAL/RHEUMATOLOGICAL Hx Falls: Yes - GASTROINTESTINAL Hx Gastrointestinal Disorders: No - GENITOURINARY/GYNECOLOGICAL Hx Genitourinary Disorders: No - PSYCHIATRIC Hx Anxiety: Yes Hx Substance Use: No - SURGICAL HISTORY Hx Cardiac Catheterization: Yes (10 years ago) Hx Orthopedic Surgery: Yes (left ankle 04/2015 wears brace) - ANESTHESIA Hx Anesthesia: Yes Hx Anesthesia Reactions: No Hx Malignant Hyperthermia: No Meds Allergies/Adverse Reactions: Allergies Allergy/AdvReac Type Severity Reaction Status Date / Time No Known Allergies Allergy Verified 01/01/18 15:37 - Medications Medications: Current Medications Alprazolam (Xanax) 0.25 mg PO BID PRN; Protocol PRN Reason: Anxiety Stop: 01/08/18 22:01 Last Admin: 01/03/18 10:45 Dose: 0.25 mg Amlodipine Besylate (Norvasc) 5 mg PO DAILY [facility] Last Admin: 01/03/18 09:22 Dose: 5 mg Ferrous Sulfate (Feosol) 324 mg PO DAILY [facility] Last Admin: 01/03/18 09:22 Dose: 324 mg Furosemide (Lasix) 40 mg IVP DAILY [facility] Last Admin: 01/03/18 09:24 Dose: 40 mg Gabapentin (Neurontin) 300 mg PO TID PRN; Protocol PRN Reason: Pain, moderate (4-7) Home Med (Home Med) 1 unit PO DAILY [facility] Last Admin: 01/03/18 09:21 Dose: 1 unit Insulin Human Regular (Humulin R Low) 0 units SC ACHS [facility] PRN Reason: Protocol Last Admin: 01/03/18 08:32 Dose: Not Given Levothyroxine Sodium (Synthroid) 50 mcg PO ACB [facility] Last Admin: 01/03/18 08:33 Dose: 50 mcg Tramadol HCl (Ultram) 50 mg PO Q4 PRN PRN Reason: Pain, moderate (4-7) Last Admin: 01/03/18 02:38 Dose: 50 mg Physical Exam - Constitutional Appears: No Acute Distress - Head Exam Head Exam: ATRAUMATIC, NORMAL INSPECTION, NORMOCEPHALIC - Eye Exam Eye Exam: Normal appearance, PERRL Pupil Exam: NORMAL ACCOMODATION, PERRL - ENT Exam ENT Exam: Mucous Membranes Moist - Respiratory Exam Respiratory Exam: Rales (bibasilar ), NORMAL BREATHING PATTERN. absent: Rhonchi , Wheezes - Cardiovascular Exam Cardiovascular Exam: REGULAR RHYTHM, +S1, +S2. absent: Gallop, Rubs, Systolic Murmur - GI/Abdominal Exam GI & Abdominal Exam: Normal Bowel Sounds, Soft. absent: Mass, Rebound, Rigid, Tenderness - Extremities Exam Extremities exam: Positive for: normal inspection. Negative for: calf tenderness, pedal edema - Neurological Exam Neurological exam: Alert, CN II-XII Intact, Oriented x3 - Psychiatric Exam Psychiatric exam: Normal Affect, Normal Mood - Skin Skin Exam: Dry, Warm Results - Vital Signs Recent Vital Signs: Last Vital Signs Temp 98 F 01/03/18 07:51 Pulse 87 01/03/18 09:22 Resp 18 01/03/18 07:51 BP 148/72 01/03/18 09:24 Pulse Ox 95 01/03/18 07:51 - Labs Result Diagrams: 01/01/18 16:15 01/03/18 10:20 Labs: Laboratory Results - last 24 hr 01/02/18 01/02/18 01/02/18 11:38 16:37 21:49 Sodium Potassium Chloride Carbon Dioxide Anion Gap BUN Creatinine Est GFR ( Amer) Est GFR (Non-Af Amer) POC Glucose (mg/dL) 198 H 184 H 207 H Random Glucose Calcium Total Bilirubin AST ALT Alkaline Phosphatase Total Protein Albumin Globulin Albumin/Globulin Ratio 01/03/18 01/03/18 01/03/18 07:22 10:20 11:15 Sodium 140 Potassium 4.3 Chloride 101 Carbon Dioxide 26 Anion Gap 17 BUN 24 H Creatinine 1.7 H Est GFR ( Amer) 35 Est GFR (Non-Af Amer) 29 POC Glucose (mg/dL) 161 H 215 H Random Glucose 238 H Calcium 9.7 Total Bilirubin 0.4 AST 16 ALT 22 Alkaline Phosphatase 76 Total Protein 7.6 Albumin 4.5 Globulin 3.1 Albumin/Globulin Ratio 1.5 Assessment & Plan - Assessment and Plan (Free Text) Assessment: This is an 82yo female with past medical history of CKD, iron deficiency anemia , PAD, NIDDM, hypothyroidism who was admitted for 1. Atypical chest pain 2. Anemia 3. L sided pleural effusion 4. CKD stage IIIb Plan: Patient is scheduled for cardiac stress test tomorrow. Hgb is stable. Will obtain iron studies as well as CT with PO contrast. Patient has never had EGD. Will follow up CT results and then decide on whether to do an EGD as inpatient or outpatient. Continue Iron supplementation. Amylase and Lipase are pending. Case seen, discussed and reviewed with Dr. Valdovinos. Nikky Aguirre PGY2 - Date & Time Date: 01/03/18 Time: 13:53 <Shanae Valdovinos V - Last Filed: 01/03/18 23:16> Meds - Medications Medications: Current Medications Alprazolam (Xanax) 0.25 mg PO BID PRN; Protocol PRN Reason: Anxiety Stop: 01/08/18 22:01 Last Admin: 01/03/18 10:45 Dose: 0.25 mg Amlodipine Besylate (Norvasc) 5 mg PO DAILY [facility] Last Admin: 01/03/18 09:22 Dose: 5 mg Ferrous Sulfate (Feosol) 324 mg PO DAILY [facility] Last Admin: 01/03/18 09:22 Dose: 324 mg Furosemide (Lasix) 40 mg IVP DAILY [facility] Last Admin: 01/03/18 09:24 Dose: 40 mg Gabapentin (Neurontin) 300 mg PO TID PRN; Protocol PRN Reason: Pain, moderate (4-7) Home Med (Home Med) 1 unit PO DAILY [facility] Last Admin: 01/03/18 09:21 Dose: 1 unit Insulin Human Regular (Humulin R Low) 0 units SC ACHS [facility] PRN Reason: Protocol Last Admin: 01/03/18 21:19 Dose: Not Given Levothyroxine Sodium (Synthroid) 50 mcg PO ACB [facility] Last Admin: 01/03/18 08:33 Dose: 50 mcg Sodium Chloride ([place] Nasal [place]) 0 ml NS Q12H PRN PRN Reason: Nasal congestion Tramadol HCl (Ultram) 50 mg PO Q4 PRN PRN Reason: Pain, moderate (4-7) Last Admin: 01/03/18 02:38 Dose: 50 mg Results - Vital Signs Recent Vital Signs: Last Vital Signs Temp 98.0 F 01/03/18 17:32 Pulse 79 01/03/18 22:00 Resp 19 01/03/18 17:32 BP 141/77 01/03/18 17:32 Pulse Ox 95 01/03/18 17:32 - Labs Result Diagrams: 01/01/18 16:15 01/03/18 10:20 Labs: Laboratory Results - last 24 hr 01/03/18 01/03/18 01/03/18 07:22 10:20 11:15 Sodium 140 Potassium 4.3 Chloride 101 Carbon Dioxide 26 Anion Gap 17 BUN 24 H Creatinine 1.7 H Est GFR ( Amer) 35 Est GFR (Non-Af Amer) 29 POC Glucose (mg/dL) 161 H 215 H Random Glucose 238 H Calcium 9.7 Total Bilirubin 0.4 AST 16 ALT 22 Alkaline Phosphatase 76 Total Protein 7.6 Albumin 4.5 Globulin 3.1 Albumin/Globulin Ratio 1.5 01/03/18 16:05 Sodium Potassium Chloride Carbon Dioxide Anion Gap BUN Creatinine Est GFR ( Amer) Est GFR (Non-Af Amer) POC Glucose (mg/dL) 217 H Random Glucose Calcium Total Bilirubin AST ALT Alkaline Phosphatase Total Protein Albumin Globulin Albumin/Globulin Ratio Attending/Attestation - Attestation I have personally seen and examined this patient.: Yes I have fully participated in the care of the patient.: Yes I have reviewed all pertinent clinical information: Yes Notes (Text): This is an addendum to GI consult report dictated by the [employer] the.The patient was seen and examined earlier. Medical records, lab studies, imagings were reviewed. Last 24 hours events reviewed. Agreed with the above treatment plan as outlined in [employer] M[employer] 's notes the with the addition of the following this patient is admitted with atypical chest pain Epigastric pain Iron deficiency anemia On examination abdomen soft mild tenderness in the epigastric area Scheduled for stress test Imaging studies reviewed Recommended endoscopy patient is refusing Continue PPI Would recur CT of the abdome and pelvis with by mouth to rule out any mass lesion, colitis Would consider EGD if the patient is agreeable 01/03/18 23:12
--- NOTE | 2018-01-03 12:59 | CARD ---
APPROVED REPORT EKG Measurement Heart [id number] <Conclusion> Normal sinus rhythm Nonspecific T wave abnormality PRWP V 1 - 4
--- NOTE | 2018-01-03 14:31 | CT ---
PROCEDURE: CT Abdomen and Pelvis without intravenous contrast HISTORY: epigastric pain, anemia COMPARISON: None. TECHNIQUE: Without contrast.. Contrast dose: Radiation dose: Total exam DLP = 443 mGy-cm. This CT exam was performed using one or more of the following dose reduction techniques: Automated exposure control, adjustment of the mA and/or kV according to patient size, and/or use of iterative reconstruction technique. FINDINGS: LOWER THORAX: Small pleural effusions LIVER: Unremarkable. No gross lesion or ductal dilatation. GALLBLADDER AND BILE DUCTS: Unremarkable. PANCREAS: Unremarkable. No gross lesion or ductal dilatation. SPLEEN: Unremarkable. ADRENALS: Unremarkable. No mass. KIDNEYS AND URETERS: Unremarkable. No hydronephrosis. No solid mass. VASCULATURE: Unremarkable. No aortic aneurysm. BOWEL: Unremarkable. No obstruction. No gross mural thickening. APPENDIX: Unremarkable. Normal appendix. PERITONEUM: Unremarkable. No free fluid. No free air. LYMPH NODES: Unremarkable. No enlarged lymph nodes. BLADDER: Unremarkable. REPRODUCTIVE: Unremarkable. BONES: There is disc degeneration at L3-4 and L5-S1 OTHER FINDINGS: None. IMPRESSION: No acute findings
--- NOTE | 2018-01-03 15:52 | CP.PCM.CON ---
History of Present Illness - History of Present Illness History of Present Illness: Podiatry Consult Note for Dr. Dubois 82F with PMHx CKD, iron deficiency anemia, PAD, NIDDM, hypothyroidism seen at bedside complaining of pain to her left hallux. Patient states that her son first noticed a bruise to the area after she fell due to a hypoglycemic episode. Patient states that there is minimal pain to the area. She is AAO x 3 and NAD, resting comfortably in a chair at time of visit. Denies any acute overnight events. Denies any further pedal complaints. Denies any recent N/V/F/C /CP/SOB/D Review of Systems - Review of Systems All systems: reviewed and no additional remarkable complaints except Review of Systems: as per HPI Past Patient History - Infectious Disease Hx of Infectious Diseases: None - Tetanus Immunizations Tetanus Immunization: Unknown - Past Social History Smoking Status: Never Smoked - CARDIAC Hx Peripheral Vascular Disease: Yes Other/Comment: hyperlipidemia - PULMONARY Hx Pneumonia: Yes (x2) - NEUROLOGICAL Hx Neurological Disorder: No Other/Comment: diabetic neuropathy, numbness, tingling ble - HEENT Hx HEENT Problems: Yes (glasses) Hx Cataracts: Yes (b/l sx) - RENAL Hx Chronic Kidney Disease: No - ENDOCRINE/METABOLIC Hx Diabetes Mellitus Type 2: Yes - HEMATOLOGICAL/ONCOLOGICAL Hx Blood Disorders: No Other/Comment: BLOOD TRANSFUSION - INTEGUMENTARY Hx Dermatological Problems: No - MUSCULOSKELETAL/RHEUMATOLOGICAL Hx Falls: Yes - GASTROINTESTINAL Hx Gastrointestinal Disorders: No - GENITOURINARY/GYNECOLOGICAL Hx Genitourinary Disorders: No - PSYCHIATRIC Hx Anxiety: Yes Hx Substance Use: No - SURGICAL HISTORY Hx Cardiac Catheterization: Yes (10 years ago) Hx Orthopedic Surgery: Yes (left ankle 04/2015 wears brace) - ANESTHESIA Hx Anesthesia: Yes Hx Anesthesia Reactions: No Hx Malignant Hyperthermia: No Meds Allergies/Adverse Reactions: Allergies Allergy/AdvReac Type Severity Reaction Status Date / Time No Known Allergies Allergy Verified 01/01/18 15:37 - Medications Medications: Current Medications Alprazolam (Xanax) 0.25 mg PO BID PRN; Protocol PRN Reason: Anxiety Stop: 01/08/18 22:01 Last Admin: 01/03/18 10:45 Dose: 0.25 mg Amlodipine Besylate (Norvasc) 5 mg PO DAILY [facility] Last Admin: 01/03/18 09:22 Dose: 5 mg Ferrous Sulfate (Feosol) 324 mg PO DAILY [facility] Last Admin: 01/03/18 09:22 Dose: 324 mg Furosemide (Lasix) 40 mg IVP DAILY [facility] Last Admin: 01/03/18 09:24 Dose: 40 mg Gabapentin (Neurontin) 300 mg PO TID PRN; Protocol PRN Reason: Pain, moderate (4-7) Home Med (Home Med) 1 unit PO DAILY [facility] Last Admin: 01/03/18 09:21 Dose: 1 unit Insulin Human Regular (Humulin R Low) 0 units SC ACHS [facility] PRN Reason: Protocol Last Admin: 01/03/18 12:20 Dose: Not Given Levothyroxine Sodium (Synthroid) 50 mcg PO ACB [facility] Last Admin: 01/03/18 08:33 Dose: 50 mcg Tramadol HCl (Ultram) 50 mg PO Q4 PRN PRN Reason: Pain, moderate (4-7) Last Admin: 01/03/18 02:38 Dose: 50 mg Physical Exam - Constitutional Appears: Well, Non-toxic, No Acute Distress - Head Exam Head Exam: ATRAUMATIC, NORMOCEPHALIC - Eye Exam Eye Exam: EOMI, PERRL - ENT Exam ENT Exam: Mucous Membranes Moist, Normal Exam - Neck Exam Neck exam: Positive for: Full Rom. Negative for: Tenderness - Respiratory Exam Respiratory Exam: NORMAL BREATHING PATTERN. absent: Respiratory Distress - Extremities Exam Additional comments: LLE focused exam: Vasc: DP/PT pulses fully palpable 2/4 b/l. Skin temperature warm to warm from proximal to distal WNL. CFT < 3 seconds to all digits b/l. No edema noted to foot or digits Neuro: Epicritic and protective sensation grossly intact Derm: Ecchymosis noted to dorsal aspect of patient's left hallux. No break in skin. Otherwise, no open lesions, wounds, maceration, xerosis, abnormal pigmentation or abnormal growths noted b/l MSK: Minimal POP to ecchymotic area of left hallux. ROM WNL for all digits and all other major joints. No other gross deformities noted to foot - Back Exam Back exam: absent: CVA tenderness (L), CVA tenderness (R) - Neurological Exam Neurological exam: Alert, Oriented x3 - Psychiatric Exam Psychiatric exam: Normal Affect, Normal Mood Results - Vital Signs Recent Vital Signs: Last Vital Signs Temp 98 F 01/03/18 07:51 Pulse 87 01/03/18 09:22 Resp 18 01/03/18 07:51 BP 148/72 01/03/18 09:24 Pulse Ox 95 01/03/18 07:51 - Labs Result Diagrams: 01/01/18 16:15 01/03/18 10:20 Labs: Laboratory Results - last 24 hr 01/02/18 01/02/18 01/02/18 11:38 16:37 21:49 Sodium Potassium Chloride Carbon Dioxide Anion Gap BUN Creatinine Est GFR ( Amer) Est GFR (Non-Af Amer) POC Glucose (mg/dL) 198 H 184 H 207 H Random Glucose Calcium Total Bilirubin AST ALT Alkaline Phosphatase Total Protein Albumin Globulin Albumin/Globulin Ratio 01/03/18 01/03/18 01/03/18 07:22 10:20 11:15 Sodium 140 Potassium 4.3 Chloride 101 Carbon Dioxide 26 Anion Gap 17 BUN 24 H Creatinine 1.7 H Est GFR ( Amer) 35 Est GFR (Non-Af Amer) 29 POC Glucose (mg/dL) 161 H 215 H Random Glucose 238 H Calcium 9.7 Total Bilirubin 0.4 AST 16 ALT 22 Alkaline Phosphatase 76 Total Protein 7.6 Albumin 4.5 Globulin 3.1 Albumin/Globulin Ratio 1.5 Assessment & Plan - Assessment and Plan (Free Text) Assessment: 82F seen for deep tissue injury to dorsal left hallux Plan: Patient seen and evaluated with attending Dr. Dubois Afebrile Continue pain medication as needed No dressing applied to left foot No plan for surgical intervention at this time Patient advised to avoid strenuous activity Podiatry to sign off at this time Thank you for this consult Please reconsult in future as needed - Date & Time Date: 01/03/18 Time: 15:56
--- NOTE | 2018-01-03 18:56 | CON ---
DATE: 01/03/2018 HISTORY OF PRESENT ILLNESS: This is an 82-year-old woman known to me, admitted over the weekend with chest and epigastric discomfort, like a band across her mid epigastric area. It was severe and occurred on the day of admission, subsequently it has resolved. This morning, she is comfortable without any symptoms. She does not describe typical exertional chest pain, dyspnea on exertion, orthopnea, PND, syncope, presyncope, lightheadedness, dizziness, vertigo, palpitation, edema, claudication, fever, chills, cough, sputum production, hemoptysis, diarrhea, constipation, melena. She had a recent [facility] admission for what appeared to be hypoglycemia in the setting of diminished appetite, diminished food intake and continuation of diabetic medications. She was seen in the emergency room with weakness and unsteadiness. The symptoms resolved and she was discharged home. Subsequently, she has had a reduction in her diabetic medications. PAST MEDICAL HISTORY: Also includes hypertension, hypothyroidism, anemia, chronic kidney disease, peripheral neuropathy, anxiety, pneumonia. Chest x-ray and CT scans demonstrate pleural effusions. An echocardiogram in 2014 demonstrated mild mitral regurgitation and moderate tricuspid regurgitation as well as normal left ventricular function. A nuclear stress test that year was also unremarkable. MEDICATIONS: At the time of admission include Crestor, doxycycline, iron supplementation, Neurontin, Norvasc, Synthroid, Tradjenta, metformin. ALLERGIES: THERE ARE NO MEDICATION ALLERGIES REPORTED. SOCIAL HISTORY: She lives at home with family support. She is ambulatory. She does not smoke. She does not drink. FAMILY HISTORY: Noncontributory. REVIEW OF SYSTEMS: A 10-point review of systems otherwise unremarkable except as noted above. PHYSICAL EXAMINATION: GENERAL: She is a well-developed woman, no acute distress. VITAL SIGNS: Notable for sinus rhythm. She is afebrile, heart rate 86 beats per minute, blood pressure 148/72, respirations 18-19, O2 sat 95% on room air. HEENT: Reveals no neck vein distention, thyromegaly, or carotid bruits. Mucous membranes moist. Conjunctivae pink. NECK: Supple. LUNGS: Lung tolbert clear. HEART: Reveal normal first and second heart sounds. There is a soft systolic murmur along the left sternal border. ABDOMEN: Soft, bowel sounds present. No mass, organomegaly, tenderness, rebound, or guarding, CVA tenderness or palpable abdominal aortic aneurysm. EXTREMITIES: Reveal no cyanosis, clubbing, or edema. NEUROLOGICAL: She is awake, alert, and oriented. SKIN: Warm and dry. No rash or cellulitis. PSYCHIATRIC: Normal as to mood and affect. LABORATORY DATA AND IMAGING: White count is normal. Platelet count 456,000, hemoglobin 9.5, hematocrit 29.5. PT, INR, PTT unremarkable. Electrolytes normal. BUN 25, creatinine 1.5, blood sugar is noted in the 100-210 range. Two troponins are negative. CK is 50, mildly abnormal and her liver function tests are normal. BNP 1570, lipase 36, TSH 1.5. IMPRESSION: Julianna Lira is an 82-year-old woman, admitted with epigastric and chest discomfort, band like in nature, severe on admission, resolved currently. She has pleural effusions noted on her chest x-ray and CT scan. EKG is benign. The CT scan also suggests abnormalities in the gallbladder, although nothing was seen on the abdominal ultrasound. At this time, I agree with current plan. She is undergoing pulmonary and gastrointestinal evaluations. An echocardiogram has been ordered. I will order a nuclear stress test. Her blood sugars will be monitored. I will repeat her EKG this morning. We will continue Norvasc and Lipitor in place of Crestor. She is getting IV Lasix. We will monitor I's and O's. We will check stool for occult blood. We will monitor labs. I will check an amylase and lipase level. She will have a Podiatry consultation. I will follow along with you and make additional recommendations based on her clinical course. Prince Tse MD JORDAN
--- NOTE | 2018-01-03 23:54 | CP.PCM.PN ---
Subjective - Date & Time of Evaluation Date of Evaluation: 01/03/18 Time of Evaluation: 23:51 - Subjective Subjective: S:Seen by bedside. Complains that her nose is congested , can not get stuff out, feels dry. No other complaints. Medical record was reviewed. O: Last Vital Signs 3 Temp 98.0 F 01/03/18 17:32 Pulse 79 01/03/18 22:00 Resp 19 01/03/18 17:32 BP 141/77 01/03/18 17:32 Pulse Ox 95 01/03/18 17:32 Not in distress. LUNGS: Normal breathing pattern. HEENT: Neg. A:Nasal Dryness. P:[place] spray nasal spray Q12H. Objective - Vital Signs/Intake and Output Vital Signs (last 24 hours): Temp Pulse Resp BP Pulse Ox 98.0 F 79 19 141/77 95 01/03/18 17:32 01/03/18 22:00 01/03/18 17:32 01/03/18 17:32 01/03/18 17:32 Intake and Output: 01/03/18 01/04/18 18:59 06:59 Intake Total 360 Balance 360 - Medications Medications: Current Medications Alprazolam (Xanax) 0.25 mg PO BID PRN; Protocol PRN Reason: Anxiety Stop: 01/08/18 22:01 Last Admin: 01/03/18 10:45 Dose: 0.25 mg Amlodipine Besylate (Norvasc) 5 mg PO DAILY [facility] Last Admin: 01/03/18 09:22 Dose: 5 mg Ferrous Sulfate (Feosol) 324 mg PO DAILY [facility] Last Admin: 01/03/18 09:22 Dose: 324 mg Furosemide (Lasix) 40 mg IVP DAILY [facility] Last Admin: 01/03/18 09:24 Dose: 40 mg Gabapentin (Neurontin) 300 mg PO TID PRN; Protocol PRN Reason: Pain, moderate (4-7) Home Med (Home Med) 1 unit PO DAILY [facility] Last Admin: 01/03/18 09:21 Dose: 1 unit Insulin Human Regular (Humulin R Low) 0 units SC ACHS [facility] PRN Reason: Protocol Last Admin: 01/03/18 21:19 Dose: Not Given Levothyroxine Sodium (Synthroid) 50 mcg PO ACB [facility] Last Admin: 01/03/18 08:33 Dose: 50 mcg Sodium Chloride ([place] Nasal [place]) 0 ml NS Q12H PRN PRN Reason: Nasal congestion Tramadol HCl (Ultram) 50 mg PO Q4 PRN PRN Reason: Pain, moderate (4-7) Last Admin: 01/03/18 02:38 Dose: 50 mg - Labs Labs: 01/03/18 10:20 PT 11.1 SECONDS (9.4-12.5) 01/01/18 16:15 INR 0.97 (0.93-1.08) 01/01/18 16:15 APTT 30.4 Seconds (25.1-36.5) 01/01/18 16:15
--- NOTE | 2018-01-04 03:06 | DS ---
HISTORY OF PRESENT ILLNESS: The patient is an 82-year-old female who came into the hospital with atypical chest pain. She says that she was having reflux symptoms as well and she had a CT of the chest that was done. It showed bilateral effusion with bibasilar atelectasis, left larger than right. She was seen by Dr. Cornelius. She has an echo that has been ordered. I will get Dr. Valdovinos to see the patient. waiting for Dr. Tse to evaluate the patient. I did speak to the patient's daughter, Ida, to give her an update on the patient's diagnosis and plan of care. She has no complaints of any headaches or dizziness. PHYSICAL EXAMINATION: VITAL SIGNS: Temperature is 98, pulse of 87, blood pressure 148/72, respirations 18. GENERAL: The patient is lying in bed, flat, comfortable. HEENT: No oral lesion. Anicteric sclerae. Moist mucosa. NECK: No JVD, adenopathy, or thyromegaly. CARDIOVASCULAR: S1 and S2, regular. No murmurs, rubs, or gallops. LUNGS: Clear to auscultation bilaterally. No wheeze, rales, or rhonchi. ABDOMEN: Bowel sounds are positive, soft, nontender, and nondistended. EXTREMITIES: no cyanosis, clubbing, or edema. ASSESSMENT: 1. Chest pain, resolved. 2. Hypertension. 3. Gastroesophageal reflux disease. 4. Diabetes type 2. 5. Chronic kidney disease, stage 3. 6. Bilateral pleural effusions. PLAN: The patient is currently comfortable. She has bilateral pleural effusions. She is seen by Dr. Hansen. I will start the patient on Lasix to help with effusions. We will await for the input from Cardiology. She is on Synthroid for hypothyroidism. She is on Ultram for pain. She is on Xanax. She has an echo that has been ordered. She has had troponin that has been negative. CONDITION: Stable. ACTIVITY: Increase as tolerated. Indio Roman MD
[2018-01-04 06:44] LABS: IRON 37 ug/dL (45-180)
[2018-01-04 07:13] LABS: % IRON SATURATION 14 % (20-55); TOTAL IRON BINDING CAPACITY 273 ug/dL (265-497)
[2018-01-04 07:59] VITALS: BP 143/69; RESP 18; TEMP 97.6; O2SAT 100
[2018-01-04] MEDS: Insulin Reg-LOW-Coverage SC SCH (08:07)
--- NOTE | 2018-01-04 08:45 | CP.PCM.PN ---
Subjective - Date & Time of Evaluation Date of Evaluation: 01/04/18 Time of Evaluation: 07:00 - Subjective Subjective: Stable on 3R. She feels better. She is refusing the nuclear stress test which was scheduled this AM- wants to postpone and maybe do as an out-pt in the future. She is also refusing EGD. No CP or SOB now. V/S noted. PE: Lungs: clear Cor.: S1S2 Abd.; soft Ext.: no edema Neuro.: alert CT (A+P) noted. No acute findings. Echo done. Objective - Vital Signs/Intake and Output Vital Signs (last 24 hours): Temp Pulse Resp BP Pulse Ox 97.6 F 96 H 18 143/69 100 01/04/18 07:59 01/04/18 07:59 01/04/18 07:59 01/04/18 07:59 01/04/18 07:59 Intake and Output: 01/04/18 01/04/18 06:59 18:59 Intake Total 360 Balance 360 - Medications Medications: Current Medications Alprazolam (Xanax) 0.25 mg PO BID PRN; Protocol PRN Reason: Anxiety Stop: 01/08/18 22:01 Last Admin: 01/03/18 10:45 Dose: 0.25 mg Amlodipine Besylate (Norvasc) 5 mg PO DAILY [facility] Last Admin: 01/03/18 09:22 Dose: 5 mg Ferrous Sulfate (Feosol) 324 mg PO DAILY [facility] Last Admin: 01/03/18 09:22 Dose: 324 mg Gabapentin (Neurontin) 300 mg PO TID PRN; Protocol PRN Reason: Pain, moderate (4-7) Home Med (Home Med) 1 unit PO DAILY [facility] Last Admin: 01/03/18 09:21 Dose: 1 unit Insulin Human Regular (Humulin R Low) 0 units SC ACHS [facility] PRN Reason: Protocol Last Admin: 01/04/18 08:07 Dose: Not Given Levothyroxine Sodium (Synthroid) 50 mcg PO ACB [facility] Last Admin: 01/03/18 08:33 Dose: 50 mcg Sodium Chloride ([place] Nasal [place]) 0 ml NS Q12H PRN PRN Reason: Nasal congestion Tramadol HCl (Ultram) 50 mg PO Q4 PRN PRN Reason: Pain, moderate (4-7) Last Admin: 01/03/18 02:38 Dose: 50 mg - Labs Labs: 01/03/18 10:20 PT 11.1 SECONDS (9.4-12.5) 01/01/18 16:15 INR 0.97 (0.93-1.08) 01/01/18 16:15 APTT 30.4 Seconds (25.1-36.5) 01/01/18 16:15 Assessment and Plan - Assessment and Plan (Free Text) Assessment: Chest and mid epigastric pain Pleural effusions Receny hypoglycemia episode Hypothyroidism Anemia CKD PN Pneumonia Anxiety Mild MR and Moderate TR on echo 2014 Neg. nuclear stress test 2014 Plan: Check echo Out-pt nuclear stress test when she agrees. D/C IV Lasix As per GIDr. Roman, Podiatry OOB ad ellen.
--- NOTE | 2018-01-04 10:12 | CARD ---
APPROVED REPORT EXAM: Two-dimensional and M-mode echocardiogram with Doppler and color Doppler. Other Information Quality : AverageRhythm : INDICATION Chest Pain 2D DIMENSIONS Left Atrium (2D)4.4 (1.6-4.0cm)IVSd1.1 (0.7-1.1cm) LVDd5.0 (3.9-5.9cm)PWd1.0 (0.7-1.1cm) LVDs3.2 (2.5-4.0cm)FS (%) 35.9 % LVEF (%)65.0 (>50%) M-Mode DIMENSIONS Aortic Root2.00 (2.2-3.7cm)Aortic Cusp Exc.1.30 (1.5-2.0cm) Aortic Valve AoV Peak Mzekpwpr035.0cm/s Mitral Valve MV E Igxixcmw880.0cm/sMV A Vtxcxdba91.7cm/sE/A ratio1.5 TDI E/Lateral E'0.0E/Medial E'0.0 Tricuspid Valve TR Peak [id number]/sRAP [id number] Peak Gr.43mmHg [id number] LEFT VENTRICLE The left ventricle is normal size. There is normal left ventricular wall thickness. The left ventricular function is normal. The left ventricular ejection fraction is within the normal range. There is normal LV segmental wall motion. RIGHT VENTRICLE The right ventricle is normal size. ATRIA The left atrium is moderately dilated. The right atrium size is normal. The interatrial septum is intact with no evidence for an atrial septal defect. AORTIC VALVE The aortic valve is normal in structure. MITRAL VALVE The mitral valve is normal in structure. Mitral regurgitation is moderate. TRICUSPID VALVE The tricuspid valve is normal in structure. There is moderate tricuspid regurgitation. There is moderate pulmonary hypertension. PULMONIC VALVE The pulmonic valve is not well visualized. There is mild pulmonic valvular regurgitation. GREAT VESSELS The aortic root is normal in size. PERICARDIAL EFFUSION There is no pericardial effusion. <Conclusion> The left ventricle is normal size. There is normal left ventricular wall thickness. The left ventricular function is normal. Mitral regurgitation is moderate. There is moderate tricuspid regurgitation. There is moderate pulmonary hypertension. There is mild pulmonic valvular regurgitation.
--- NOTE | 2018-01-04 11:06 | CP.PCM.PN ---
<Akua Aguirre - Last Filed: 01/04/18 14:35> Subjective - Date & Time of Evaluation Date of Evaluation: 01/04/18 Time of Evaluation: 07:00 - Subjective Subjective: GI Progress Note for Nikky Wood PGY2 Patient seen and examined at bedside. There were no acute overnight events as per nursing staff. Patient reports feeling much better today. Her pain has resolved. She denies chest pain, shortness of breath, nausea/vomiting/diarrhea, fever/chills, dysuria or hematuria. Patient states that she wants to do the stress test as outpatient because she is claustrophobic. I spoke with her about EGD and patient reports that she "needs to think about it". Risks, benefits, alternatives and options were discussed with her and patient states she is not able to make a decision at this time. I offered to call her family and she said she wants to discuss it with her daughter herself. Objective - Vital Signs/Intake and Output Vital Signs (last 24 hours): Temp Pulse Resp BP Pulse Ox 97.6 F 96 H 18 143/69 100 01/04/18 07:59 01/04/18 07:59 01/04/18 07:59 01/04/18 07:59 01/04/18 07:59 Intake and Output: 01/04/18 01/04/18 06:59 18:59 Intake Total 360 Balance 360 - Medications Medications: Current Medications Alprazolam (Xanax) 0.25 mg PO BID PRN; Protocol PRN Reason: Anxiety Stop: 01/08/18 22:01 Last Admin: 01/03/18 10:45 Dose: 0.25 mg Amlodipine Besylate (Norvasc) 5 mg PO DAILY [facility] Last Admin: 01/03/18 09:22 Dose: 5 mg Ferrous Sulfate (Feosol) 324 mg PO DAILY [facility] Last Admin: 01/03/18 09:22 Dose: 324 mg Gabapentin (Neurontin) 300 mg PO TID PRN; Protocol PRN Reason: Pain, moderate (4-7) Home Med (Home Med) 1 unit PO DAILY [facility] Last Admin: 01/03/18 09:21 Dose: 1 unit Insulin Human Regular (Humulin R Low) 0 units SC [facility] PRN Reason: Protocol Last Admin: 01/04/18 08:07 Dose: Not Given Levothyroxine Sodium (Synthroid) 50 mcg PO ACB [facility] Last Admin: 01/03/18 08:33 Dose: 50 mcg Sodium Chloride ([place] Nasal [place]) 0 ml NS Q12H PRN PRN Reason: Nasal congestion Tramadol HCl (Ultram) 50 mg PO Q4 PRN PRN Reason: Pain, moderate (4-7) Last Admin: 01/03/18 02:38 Dose: 50 mg - Labs Labs: 01/03/18 10:20 PT 11.1 SECONDS (9.4-12.5) 01/01/18 16:15 INR 0.97 (0.93-1.08) 01/01/18 16:15 APTT 30.4 Seconds (25.1-36.5) 01/01/18 16:15 - Constitutional Appears: No Acute Distress - Head Exam Head Exam: ATRAUMATIC, NORMAL INSPECTION, NORMOCEPHALIC - Eye Exam Eye Exam: Normal appearance, PERRL Pupil Exam: NORMAL ACCOMODATION - ENT Exam ENT Exam: Mucous Membranes Moist - Respiratory Exam Respiratory Exam: Clear to Ausculation Bilateral, NORMAL BREATHING PATTERN. absent: Rales, Rhonchi, Wheezes - Cardiovascular Exam Cardiovascular Exam: REGULAR RHYTHM, +S1, +S2. absent: Gallop, Rubs, Murmur - GI/Abdominal Exam GI & Abdominal Exam: Soft, Normal Bowel Sounds. absent: Rigid, Tenderness, Mass , Rebound - Extremities Exam Extremities Exam: Normal Inspection - Neurological Exam Neurological Exam: Alert, Awake, CN II-XII Intact, Oriented x3 - Psychiatric Exam Psychiatric exam: Normal Affect, Normal Mood - Skin Skin Exam: Dry, Warm Assessment and Plan - Assessment and Plan (Free Text) Assessment: This is an 82yo female with past medical history of CKD, iron deficiency anemia , PAD, NIDDM, hypothyroidism who was admitted for 1. Atypical chest pain 2. Anemia (iron deficience 3. L sided pleural effusion 4. CKD stage IIIb Plan: Recommend patient to have an outpatient stress test. Recommend to take oral Iron and avoid NSAIDs. CT A/P did not show any acute process. Patient should follow up as an outpatient for EGD. Case seen, discussed and reviewed with Dr. Valdovinos. Nikky Aguirre PGY2 <Shanae Valdovinos V - Last Filed: 01/05/18 00:09> Objective - Vital Signs/Intake and Output Vital Signs (last 24 hours): Temp Pulse Resp BP Pulse Ox 97.6 F 91 H 18 143/69 100 01/04/18 07:59 01/04/18 10:00 01/04/18 07:59 01/04/18 07:59 01/04/18 07:59 - Labs Labs: 01/03/18 10:20 PT 11.1 SECONDS (9.4-12.5) 01/01/18 16:15 INR 0.97 (0.93-1.08) 01/01/18 16:15 APTT 30.4 Seconds (25.1-36.5) 01/01/18 16:15 Attending/Attestation - Attestation I have fully participated in the care of the patient.: Yes I have reviewed all pertinent clinical information, including history, physical exam and plan: Yes Notes (Text): This is an addendum to GI progress report dictated by the Hydrodynamicist.Medical records, lab studies, imagings were reviewed. Last 24 hours events reviewed. Agreed with the above treatment plan as outlined in Hydrodynamicist 's notes the with the addition of the following patient was refusing EGD, stress test This patient has clearly iron deficiency anemia Would need definitely benefit from the endoscopy would recommend EGD as initial evaluation the importance of the test has been explained to the patient is also advised to follow up in the office 01/05/18 00:08
[2018-01-04 12:03] VITALS: PULSE 91
[2018-01-04 12:31] LABS: FERRITIN 94.8 ng/mL
--- NOTE | 2018-01-04 18:06 | PN ---
DATE: 01/04/2018 PULMONARY PROGRESS NOTE SUBJECTIVE: The patient was seen and examined at the bedside. Her daughter was present for examination. She was admitted to [facility] with some chest pain and she has a recent history of pneumonia. PHYSICAL EXAMINATION: GENERAL: She is awake, alert, in no acute distress. HEENT: Examination of head, ears, nose, and throat is within normal limits. NECK: Supple with no jugular vein distentions. CARDIOVASCULAR: S1 and S2. No S3. Regular. PULMONARY: Diminished breath sounds, but no rhonchi, rales, or wheezing. GASTROINTESTINAL: Soft, nontender. No organomegaly. EXTREMITIES: No clubbing, cyanosis, or edema. SKIN: No acute skin rash. NEUROLOGIC: Limited at the present time. LABORATORY DATA: No labs to review. ADDITIONAL STUDIES: I reviewed the CT scan of chest, which reveals small mediastinal lymph nodes and significant between small and moderate bilateral pleural effusions, the pleural effusions especially bilateral and symmetrical, sings of congestive heart failure. ASSESSMENT: 1. Congestive heart failure. 2. Bilateral pleural effusions. 3. Chest pain. 4. Rule out coronary artery disease. 5. Mediastinal adenopathy. PLAN: I discussed the findings with her daughter. The patient can continue treatment with diuretics and additional workup as an outpatient. I will recommend repeat chest x-ray or CT scan of chest. After therapy, although if the pleural effusions will resolve on the chest x-ray, additional CT is not recommended. Gustabo Cha MD
--- NOTE | 2018-01-05 03:29 | DS ---
HISTORY OF PRESENT ILLNESS: This is an 82-year-old female who had come to the hospital with atypical chest pain. She was to undergo a stress testing yesterday, but she refused. The patient had a CT of the abdomen and pelvis done that showed no acute abnormalities. She was seen GI. The patient wants to think about her stress test, and may be able to get it done as an outpatient. I would hold off on doing an endoscopy until the stress test is done and negative. Her last stress test was in 2014, and was negative. She has no complaints of any chest pain, no shortness of breath, no headaches or dizziness. PHYSICAL EXAMINATION: VITAL SIGNS: She has a temperature of 97.6, pulse of 96, blood pressure 142/69, respirations 18. Height is 5 feet 1 inch, weight is 135 pounds, BMI is 25.5. GENERAL: The patient is lying in bed, flat, comfortable. HEENT: No oral lesion. Anicteric sclerae. Moist mucosa. NECK: No JVD, adenopathy, or thyromegaly. CARDIOVASCULAR: S1 and S2, regular. No murmurs, rubs, or gallops. LUNGS: Clear to auscultation bilaterally. No wheeze, rales, or rhonchi. ABDOMEN: Bowel sounds are positive, soft, nontender and nondistended. EXTREMITIES: No cyanosis, clubbing or edema. ASSESSMENT: 1. Chest pain, resolved. 2. Hypertension. 3. Gastroesophageal reflux disease. 4. Diabetes type 2. 5. Chronic kidney disease, stage III. 6. Bilateral pleural effusion. 7. Hypothyroidism. 8. Moderate tricuspid regurgitation by echo in 2014. PLAN: The patient is going to be followed up as an outpatient. She is receiving gabapentin for neuropathy. She is on Norvasc for hypertension. She is on Synthroid for hypothyroidism. She is on Ultram for pain. She is on a heart-healthy diet. She does have iron deficiency and will need further workup with GI. CONDITION: Stable. ACTIVITIES: Increase as tolerated. FOLLOWUP: 1. Follow up with primary care doctor in 1-2 weeks. 2. Follow up with Dr. Valdovinos. 3. Follow up with Dr. Tse. Indio Abel, MD [facility] # [id number]
== END 2018-01-04 11:22 | disposition home or self-care (01) | DRG 292 ==
LOC: ED 15:24 → ERH 17:56 → 3RNO 20:06
PROVIDERS: ADMIT Internal Medicine Nephrology; ATTEND Internal Medicine Nephrology
DX: I13.0 Hypertensive heart and chronic kidney disease with heart failure and stage 1 through stage 4 chronic kidney disease, or unspecified chronic kidney disease (principal); J98.11 Atelectasis; K21.9 Gastro-esophageal reflux disease without esophagitis; I50.9 Heart failure, unspecified; N18.3 Chronic kidney disease, stage 3 (moderate); E03.9 Hypothyroidism, unspecified; E11.40 Type 2 diabetes mellitus with diabetic neuropathy, unspecified; R07.2 Precordial pain; D50.9 Iron deficiency anemia, unspecified; E11.22 Type 2 diabetes mellitus with diabetic chronic kidney disease; E11.649 Type 2 diabetes mellitus with hypoglycemia without coma; E78.5 Hyperlipidemia, unspecified; E11.51 Type 2 diabetes mellitus with diabetic peripheral angiopathy without gangrene; I08.1 Rheumatic disorders of both mitral and tricuspid valves; R59.0 Localized enlarged lymph nodes; Z87.01 Personal history of pneumonia (recurrent); Z87.891 Personal history of nicotine dependence

== ENCOUNTER 2018-05-24 09:00 | Inpatient (IN) | payer MEDICARE, OTHER ==
[2018-05-24 09:16] VITALS: BMI 24.7
--- NOTE | 2018-05-24 09:34 | ED PDOC ---
Arrival/HPI <Elizabeth Aguilar - Last Filed: 05/24/18 11:50> - History of Present Illness Narrative History of Present Illness (Text): CC: sob This is an 82 year old female with PMH of CKD stage III, PAD, NIDDM2, GERD, hypothyroidism, iron deficiency anemia who presents with sob for the past couple of days. Pt reports that the sob is worse with exertion and laying down, and better with rest and sitting up, associated with bilateral leg swelling for the past couple of days. Pt reports that she has been sleeping sitting up for the past few days. She also reports that she has had postnasal drip for the past couple days, and has been producing a lot of mucus in the throat. Pt also reports abdominal pain for the past couple days described as tightness across the upper abdomen, nonradiating. Pt states that this feels like her usual GERD discomfort. Denies fever, chills, headache, double vision, blurry vision, chest pain, n/v/d, recent illness, sick contacts, recent travel, leg pain. Recently hospitalized for pneumonia and chest pain in december 2017, where she as discharged with lasix PO and doxycycline PO (completed course). Echo (12/2017) showed LVEF 65%, moderate MR, Moderate TR, Mild pulmonary valvular regurgitation, left atrial moderately dilated. PMD: [place] [facility]rology: H[facility] Cardiology: Benji/Vipul PMH: CHF, CKD stage III, PAD, NIDDM2, GERD, hypothyroidism, iron deficiency anemia PSH: bilateral ankle surgery due to fractures in the past Meds: Metformin 500 mg PO BID, Norvasc 5 mg PO daily, Tradjenta 5 mg PO daily, Synthroid, Gabapentin, Feosol, Losartan 25 mg PO daily, Crestor Allx: NKDA Social hx: former smoker quit 50 years ago, no etoh, no illicit drug use <Shemar Fletcher - Last Filed: 05/25/18 12:01> - General Chief Complaint: Shortness Of Breath Time Seen by Provider: 05/24/18 09:26 Past Medical History - Past History Past History: No Previous - Infectious Disease Hx of Infectious Diseases: None - Tetanus Immunization Tetanus Immunization: Unknown - Cardiac Hx Cardiac Disorders: Yes Hx Peripheral Vascular Disease: Yes Other/Comment: hyperlipidemia - Pulmonary Hx Respiratory Disorders: Yes Hx Pneumonia: Yes (x2) - Neurological Hx Neurological Disorder: No Other/Comment: diabetic neuropathy, numbness, tingling ble - HEENT Hx HEENT Disorder: Yes (glasses) Hx Cataracts: Yes (b/l sx) - Renal Hx Renal Disorder: No - Endocrine/Metabolic Hx Endocrine Disorders: Yes Hx Diabetes Mellitus Type 2: Yes - Hematological/Oncological Hx Blood Disorders: No Other/Comment: BLOOD TRANSFUSION - Integumentary Hx Dermatological Disorder: No - Musculoskeletal/Rheumatological Hx Musculoskeletal Disorders: Yes Hx Falls: Yes - Gastrointestinal Hx Gastrointestinal Disorders: No - Genitourinary/Gynecological Hx Genitourinary Disorders: No - Psychiatric Hx Psychophysiologic Disorder: Yes Hx Anxiety: Yes Hx Substance Use: No - Surgical History Hx Cardiac Catheterization: Yes (10 years ago) Hx Orthopedic Surgery: Yes (left ankle 04/2015 wears brace) - Anesthesia Hx Anesthesia: Yes Hx Anesthesia Reactions: No Hx Malignant Hyperthermia: No - Suicidal Assessment Feels Threatened In Home Enviroment: No <Shemar Fletcher - Last Filed: 05/25/18 12:01> Family/Social History Family/Social History: Unknown Family HX Smoking Status: Never Smoked Hx Alcohol Use: No Hx Substance Use: No Hx Substance Use Treatment: No <Shemar Fletcher - Last Filed: 05/25/18 12:01> Allergies/Home Meds <Elizabeth Aguilar - Last Filed: 05/24/18 11:50> <Shemar Fletcher - Last Filed: 05/25/18 12:01> Allergies/Adverse Reactions: Allergies No Known Allergies Allergy (Verified 05/24/18 13:22) Home Medications: Home Meds Medication Instructions Recorded Confirmed Levothyroxine [Synthroid] 50 mcg PO DAILY 03/29/15 05/24/18 Rosuvastatin Calcium [Crestor] 10 mg PO HS 03/29/15 05/24/18 Gabapentin [Neurontin] 300 mg PO TID PRN 02/12/17 05/24/18 amLODIPine [Norvasc] 5 mg PO DAILY 11/19/17 05/24/18 Ferrous Sulfate [Feosol] 325 mg PO DAILY 12/28/17 05/24/18 Linagliptin [Tradjenta] 5 mg PO DAILY 12/28/17 05/24/18 Losartan [Cozaar] 25 mg PO HS 05/24/18 05/24/18 Review of Systems - Review of Systems Systems not reviewed;Unavailable: Other (see HPI) Constitutional: Normal <Shemar Fletcher - Last Filed: 05/25/18 12:01> Physical Exam Vital Signs Temp Pulse Resp BP Pulse Ox 05/24/18 09:16 97.6 F 102 H 18 185/83 H 98 <Elizabeth Aguilar - Last Filed: 05/24/18 11:50> Vital Signs Reviewed: Yes Vital Signs Temp Pulse Resp BP Pulse Ox 05/24/18 09:16 97.6 F 102 H 18 185/83 H 98 Temperature: Afebrile Blood Pressure: Hypertensive Pulse: Tachycardic Respiratory Rate: Normal Appearance: Positive for: Non-Toxic Pain Distress: None Mental Status: Positive for: Alert and Oriented X 3 - Systems Exam Head: Present: Atraumatic, Normocephalic Extroacular Muscles: Present: EOMI Conjunctiva: Present: Normal, Other (eyelid erythema bilaterally) Mouth: Present: Moist Mucous Membranes Pharnyx: Present: ERYTHEMA. No: TONSILS ENLARGED Respiratory/Chest: Present: Wheezes (end expiratory), Rales, Rhonchi, Other (speaking in 5 word sentences). No: Accessory Muscle Use Cardiovascular: Present: Normal S1, S2, Tachycardic Abdomen: Present: Tenderness (mild epigrastric tenderness on deep palpation). No: Rebound, Guarding Upper Extremity: Present: Normal Inspection, NORMAL PULSES Lower Extremity: Present: NORMAL PULSES, Swelling (trace pitting edema bilateral lower extremities, to the kneed). No: CALF TENDERNESS Neurological: Present: GCS=15, Speech Normal Skin: Present: Warm, Dry, Normal Color Psychiatric: Present: Alert, Oriented x 3 <Shemar Fletcher - Last Filed: 05/25/18 12:01> Medical Decision Making ED Course and Treatment: 05/24/18 10:29 Patient Seen with Resident: In agreement with resident note which contains more details about the patient. Patient seen and evaluated with resident. Came up with plan and treatment together. 05/24/18 11:[address] Roman and patient to be admitted under him to TELE. - RAD Interpretation Radiology Orders: 05/24/18 10:15 CHEST PORTABLE [RAD] Stat - Medication Orders Current Medication Orders: Albuterol/Ipratropium (Duoneb 3 Mg/0.5 Mg (3 Ml) Ud) 3 ml IH Q15M PASCALE Stop: 05/24/18 11:01 Furosemide (Lasix) 20 mg IVP ONCE ONE Stop: 05/24/18 10:23 Discontinued Medications Aspirin (Aspirin) 325 mg PO STAT STA Stop: 05/24/18 10:27 <Elizabeth Aguilar - Last Filed: 05/24/18 11:50> ED Course and Treatment: CXR, EKG, troponin, bnp, CMP, CBC. Lasix 20 mg IVP, ASA 325 mg PO stat, Duoneb. Case discussed with daughter sarah, who requests that no tests be done prior to discussion with her. Pt and daughter, Sen, state that pt is DNR/DNI. Pt has an advanced directive at home as per daughter sen. I described to the pt intubation and CPR, including risks () and benefit, and she states that she does not want it. Case discussed with resident for Dr. Roman, Dr. Altamirano, who will accept the pt to his service. - RAD Interpretation Narrative RAD Interpretations (Text): 05/24/18 12:13 CXR: (+) cephalization, (+) Pulm vasc congestion, (+) bilateral pleural effusions (R>L); as read by ED physician Fiber Product Cutting Machine Operator: ED Physician - EKG Interpretation EKG Interpretation (Text): 05/24/18 09:56 NSR at 99, no specific STTW changes; QTc 431, HI 154 Interpreted by ED Physician: Yes <Shemar Fletcher - Last Filed: 05/25/18 12:01> Disposition/Present on Arrival <Elizabeth Aguilar - Last Filed: 05/24/18 11:50> - Present on Arrival Any Indicators Present on Arrival: No History of DVT/PE: No History of Uncontrolled Diabetes: No Urinary Catheter: No History of Decub. Ulcer: No History Surgical Site Infection Following: None - Disposition Have Diagnosis and Disposition been Completed?: Yes Disposition Time: 11:50 <Shemar Fletcher - Last Filed: 05/25/18 12:01> - Disposition Diagnosis: SOB (shortness of breath) on exertion, CHF (congestive heart failure) Disposition: HOSPITALIZED Patient Problems: Current Active Problems Problem Status Onset CHF (congestive heart failure) Acute SOB (shortness of breath) on exertion Acute Condition: GOOD
[2018-05-24] MEDS: Albuterol-Ipratrop 3 mg / 0.5 (3 ml) UD IH SCH ×3 (10:30→14:26)
--- NOTE | 2018-05-24 10:42 | CARD ---
APPROVED REPORT Date of service: 05/24/2018 EKG Measurement Heart [id number] <Conclusion> Normal sinus rhythm Nonspecific ST and T wave abnormality No change
[2018-05-24 10:54] LABS: BASO # 0.05 K/mm3 (0.0-2.0); BASO % 0.5 % (0.0-3.0); EOS # 0.3 (0.0-0.7); EOS % 2.4 % (1.5-5.0); GRAN # 8.52 (1.4-6.5); GRAN % 76.7 % (50.0-68.0); HEMOGLOBIN 9.3 g/dL (12.0-16.0); INR 0.91; LYMPH # 1.6 (1.2-3.4); LYMPH % 14.7 % (22.0-35.0); MEAN CELL VOLUME 87.6 fl (80.0-105.0); MEAN CORPUSCULAR HEMOGLOBIN 28.9 pg (25.0-35.0); MEAN PLATELET VOLUME 9.8 fl (7.0-11.0); MONO # 0.6 (0.1-0.6); MONO % 5.7 % (1.0-6.0); PARTIAL THROMBOPLASTIN TIME 32.1 Seconds (25.1-36.5); PROTHROMBIN TIME 10.5 SECONDS (9.4-12.5); RBC 3.22 10^6/uL (3.5-6.1); RED CELL DISTRIBUTION WIDTH 16.3 % (11.5-14.5); WHITE BLOOD COUNT 11.1 10^3/ul (4.5-11.0)
[2018-05-24 10:57] LABS: ALB/GLOB RATIO 1.4 (1.1-1.8); ALBUMIN 4.5 g/dL (3.0-4.8); ALT/SGPT 21 U/L (7-56); AST/SGOT 21 U/L (14-36); BLOOD UREA NITROGEN 32 mg/dL (7-21); CALCIUM 9.6 mg/dL (8.4-10.5); GFR NON-AFRICAN AMERICAN 33
[2018-05-24 11:08] LABS: B-TYPE NATRIURETIC PEPTIDE 1630 pg/mL (0-450); TROPONIN I < 0.01 ng/mL
[2018-05-24] MEDS ORDERED: Non Formulary Medication (Rosuvastatin Calcium [Crestor] 10 MG) PO SCH (12:30)
--- NOTE | 2018-05-24 12:41 | CP.PCM.HP ---
<Darryl Altamirano - Last Filed: 05/24/18 16:05> History of Present Illness - History of Present Illness History of Present Illness: Darryl Jeffersonisraelrodger PGY2 IM H&P Note for Dr. Roman cc: shortness of breath and leg swelling Ms. Lira is an 82-year-old female with a PMH of CKD, DM2, hypothyroidism, iron deficiency anemia who presents to the ED with exertional shortness of breath and leg swelling over the past 3-4 days. The patient was admitted to [facility] in 12/2017 with similar symptoms and was discharged with Lasix, however, she has not taken it over the past month per recommendations from her plastic bubble packer Dr. Young. The patient also follows up with Media Marketing Coordinator Dr. Tse as an outpatient and states that he has recommended for her multiple times to undergo a stress test, however she has not yet. Regarding her symptoms, the patient states that she has been using multiple pillows to elevate her head when she sleeps, and has been becoming short of breath when taking one flight of stairs to her second floor apartment, and experiencing some wheezing/dry cough. She denies any chest pain, abdominal pain, numbness/tingling in her legs, headaches or changes in vision, focal deficits, nausea/vomiting/diarrhea, or any urinary/bowel habit changes. 12 point ROS was reviewed and is otherwise unremarkable. Prior charts reveal echocardiogram from 12/2017 that showed LVEF 65%, moderate MR, moderate TR, mild pulmonary valvular regurgitation, left atria moderately dilated. In ER, the patient was given Lasix 20 mg IVP x1, and aspirin 325 mg x1. EKG was NSR and 99 bpm, with nonspecific ST and T wave abnormalities. Chest x-ray reviewed showed cardiogenic pulmonary edema and bilateral pleural effusion R >L. PMD: Dr. Salvador Nephrology: Dr. Young Cardiology: Dr. Tse PMH: as above PSH: bilateral ankle surgery due to fractures in the past Meds: Metformin 500 mg PO BID, Norvasc 5 mg PO daily, Tradjenta 5 mg PO daily, S ynthroid, Gabapentin, Feosol, Losartan 25 mg PO daily, Crestor Allergies: NKDA SHx: former smoker quit 50 years ago, no etoh, no illicit drug use. lives alone FHx: non-contributory Present on Admission - Present on Admission Any Indicators Present on Admission: No Review of Systems - Review of Systems All systems: reviewed and no additional remarkable complaints except (as per HPI) Past Patient History - Infectious Disease Hx of Infectious Diseases: None - Tetanus Immunizations Tetanus Immunization: Unknown - Past Medical History & Family History Past Medical History?: Yes Past Family History: Reviewed and not pertinent - Past Social History Smoking Status: Former Smoker Alcohol: None Drugs: Denies Home Situation {Lives}: Alone - CARDIAC Hx Cardiac Disorders: Yes Hx Hypertension: Yes Hx Peripheral Vascular Disease: Yes Other/Comment: hyperlipidemia - PULMONARY Hx Respiratory Disorders: Yes Hx Pneumonia: Yes (x2) - NEUROLOGICAL Hx Neurological Disorder: No Other/Comment: diabetic neuropathy - HEENT Hx HEENT Problems: Yes (glasses) Hx Cataracts: Yes (b/l sx) - RENAL Hx Chronic Kidney Disease: Yes - ENDOCRINE/METABOLIC Hx Endocrine Disorders: Yes Hx Diabetes Mellitus Type 2: Yes Hx Hypothyroidism: Yes - HEMATOLOGICAL/ONCOLOGICAL Hx Blood Disorders: No Other/Comment: BLOOD TRANSFUSION - INTEGUMENTARY Hx Dermatological Problems: No - MUSCULOSKELETAL/RHEUMATOLOGICAL Hx Musculoskeletal Disorders: Yes Hx Falls: Yes - GASTROINTESTINAL Hx Gastrointestinal Disorders: No - GENITOURINARY/GYNECOLOGICAL Hx Genitourinary Disorders: No - PSYCHIATRIC Hx Psychophysiologic Disorder: Yes Hx Anxiety: Yes Hx Substance Use: No - SURGICAL HISTORY Hx Cardiac Catheterization: Yes (10 years ago) Hx Orthopedic Surgery: Yes (left ankle 04/2015 wears brace) - ANESTHESIA Hx Anesthesia: Yes Hx Anesthesia Reactions: No Hx Malignant Hyperthermia: No Meds Allergies/Adverse Reactions: Allergies Allergy/AdvReac Type Severity Reaction Status Date / Time No Known Allergies Allergy Verified 05/24/18 13:22 Physical Exam - Constitutional Appears: Well, Non-toxic, No Acute Distress - Head Exam Head Exam: NORMAL INSPECTION - Eye Exam Eye Exam: EOMI, Normal appearance, PERRL - ENT Exam ENT Exam: Mucous Membranes Moist - Neck Exam Neck exam: Positive for: Normal Inspection - Respiratory Exam Respiratory Exam: Rales (bibasilar), NORMAL BREATHING PATTERN. absent: Rhonchi, Wheezes, Respiratory Distress - Cardiovascular Exam Cardiovascular Exam: Tachycardia, +S1, +S2, Systolic Murmur (grade 4 systolic) - GI/Abdominal Exam GI & Abdominal Exam: Normal Bowel Sounds, Soft. absent: Distended, Tenderness - Extremities Exam Extremities exam: Positive for: full ROM, pedal edema (1+ pitting edema b/l), pedal pulses present. Negative for: joint swelling, tenderness - Back Exam Back exam: NORMAL INSPECTION - Neurological Exam Neurological exam: Alert, CN II-XII Intact, Oriented x3 - Skin Skin Exam: Dry, Normal Color, Warm Results - Vital Signs Recent Vital Signs: Last Vital Signs Temp 97.6 F 05/24/18 09:16 Pulse 105 H 05/24/18 11:57 Resp 18 05/24/18 11:57 BP 162/76 H 05/24/18 11:57 Pulse Ox 97 05/24/18 11:57 - Labs Result Diagrams: 05/24/18 09:20 05/24/18 09:20 Labs: Laboratory Results - last 24 hr 05/24/18 05/24/18 05/24/18 09:20 09:20 09:20 WBC 11.1 H RBC 3.22 L Hgb 9.3 L Hct 28.2 L MCV 87.6 MCH 28.9 MCHC 33.0 RDW 16.3 H Plt Count 385 MPV 9.8 Gran % 76.7 H Lymph % (Auto) 14.7 L [place] % (Auto) 5.7 Eos % (Auto) 2.4 Baso % (Auto) 0.5 Gran # 8.52 H Lymph # (Auto) 1.6 [place] # (Auto) 0.6 Eos # (Auto) 0.3 Baso # (Auto) 0.05 PT 10.5 INR 0.91 APTT 32.1 Sodium 142 Potassium 4.6 Chloride 110 H Carbon Dioxide 21 Anion Gap 16 BUN 32 H Creatinine 1.5 H Est GFR ( Amer) 40 Est GFR (Non-Af Amer) 33 Random Glucose 147 H Calcium 9.6 Magnesium 1.9 Total Bilirubin 0.4 AST 21 ALT 21 Alkaline Phosphatase 72 Lactate Dehydrogenase 561 Total Creatine Kinase 59 Troponin I < 0.01 NT-Pro-B Natriuret Pep 1630 H Total Protein 7.8 Albumin 4.5 Globulin 3.3 Albumin/Globulin Ratio 1.4 Assessment & Plan - Assessment and Plan (Free Text) Assessment: 82-year-old female with a PMH of CKD stage 3b, DM2, hypothyroidism, iron deficiency anemia who presents to the ED with exertional shortness of breath and leg swelling over the past 3-4 days, likely due to CHF exacerbation. There are no signs of pneumonia or other infections. There is presence of a grade 4 systolic murmur which was not emphasized on prior admission or noted on Echo. Patient is also anemic. CKD is not acutely exacerbated. Plan: - trend troponin to r/o ACS - obtain AM EKG - obtain Echo to evaluate CHF and murmur - Lasix IVP daily - monitor daily weights and strict I/O - Cardiology Consulted, recs appreciated - cont Lipitor - cont Synthroid - cont iron - ISS low - cont Neurontin - PT eval pending - Further recs per Dr. Roman Case was reviewed and discussed with attending, Dr. Abel Altamirano PGY2 <Indio Roman S - Last Filed: 05/26/18 19:25> Results - Vital Signs Recent Vital Signs: Last Vital Signs Temp 98.7 F 05/26/18 06:00 Pulse 97 H 05/26/18 09:05 Resp 20 05/26/18 06:00 BP 153/77 H 05/26/18 09:05 Pulse Ox 96 05/26/18 06:00 - Labs Result Diagrams: 05/26/18 05:45 05/26/18 05:45 Labs: Laboratory Results - last 24 hr 05/25/18 05/26/18 05/26/18 21:24 05:45 05:45 WBC 11.2 H RBC 2.71 L Hgb 7.6 L Hct 23.6 L MCV 87.1 MCH 28.0 MCHC 32.2 RDW 16.5 H Plt Count 350 MPV 9.7 Sodium 138 Potassium 3.8 Chloride 105 Carbon Dioxide 24 Anion Gap 12 BUN 38 H Creatinine 1.7 H Est GFR ( Amer) 35 Est GFR (Non-Af Amer) 29 POC Glucose (mg/dL) 310 H Random Glucose 225 H Calcium 9.3 05/26/18 05/26/18 07:16 11:01 WBC RBC Hgb Hct MCV MCH MCHC RDW Plt Count MPV Sodium Potassium Chloride Carbon Dioxide Anion Gap BUN Creatinine Est GFR ( Amer) Est GFR (Non-Af Amer) POC Glucose (mg/dL) 226 H 339 H Random Glucose Calcium Assessment & Plan - Assessment and Plan (Free Text) Plan: Pt seen and examined. I have reviewed the note of the medical doctor md/medical director and agree with it. I have discussed the assessment and plan with the resident. I have reviewed the patient's labs and medications. Pt with CHF due to systolic dysfunction, acute. She was given Lasix and has improved in her symptoms. DM-2 is controlled with insulin. CKD-3 and may need to stop Metformin. Spoke to daughter and explained this to her. She will follow with endocrine. LE edema has improved. Pt was seen by Dr Tse and will be discharged home.
[2018-05-24] MEDS: Levothyroxine 25 MCG TAB PO SCH (14:52)
--- NOTE | 2018-05-24 15:30 | RAD ---
Date of service: 05/24/2018 HISTORY: Shortness of breath COMPARISON: 02/22/2018 FINDINGS: LUNGS: No discrete infiltrates. Compressive atelectasis related to bilateral pleural effusions right larger than left PLEURA: Bilateral pleural effusions right larger than left CARDIOVASCULAR: No atherosclerotic calcification present Findings suggestive of cardiogenic pulmonary edema of (interstitial). OSSEOUS STRUCTURES: No significant abnormalities. VISUALIZED UPPER ABDOMEN: Normal. OTHER FINDINGS: None. IMPRESSION: CHF including interstitial edema and bilateral pleural effusions right larger than left. All
[2018-05-24 16:26] LABS: TROPONIN I < 0.01 ng/mL
[2018-05-24] MEDS: Insulin Lispro (humaLOG) LOW Coverage SC SCH ×2 (17:55→21:14)
[2018-05-24] MEDS ORDERED: Influenza Vaccine 60 mcg/0.5 mL SYR (4YR UP) IM ONE (20:26)
[2018-05-24] MEDS ORDERED: Pneumococcal 23-Valent Vaccine IM ONE (20:26)
[2018-05-24 21:31] LABS: TROPONIN I < 0.01 ng/mL
[2018-05-25 06:33] LABS: BASO # 0.06 K/mm3 (0.0-2.0); BASO % 0.6 % (0.0-3.0); EOS # 0.2 (0.0-0.7); EOS % 2.5 % (1.5-5.0); GRAN # 6.71 (1.4-6.5); GRAN % 70.1 % (50.0-68.0); HEMOGLOBIN 8.1 g/dL (12.0-16.0); LYMPH # 1.7 (1.2-3.4); LYMPH % 17.6 % (22.0-35.0); MEAN CELL VOLUME 88.3 fl (80.0-105.0); MEAN CORPUSCULAR HEMOGLOBIN 27.8 pg (25.0-35.0); MEAN CORPUSCULAR HGB CONC 31.5 g/dl (31.0-37.0); MEAN PLATELET VOLUME 9.8 fl (7.0-11.0); MONO # 0.9 (0.1-0.6); MONO % 9.2 % (1.0-6.0); RBC 2.91 10^6/uL (3.5-6.1); RED CELL DISTRIBUTION WIDTH 16.7 % (11.5-14.5); WHITE BLOOD COUNT 9.6 10^3/ul (4.5-11.0)
[2018-05-25 06:52] LABS: ALB/GLOB RATIO 1.3 (1.1-1.8); ALBUMIN 3.9 g/dL (3.0-4.8); CALCIUM 9.2 mg/dL (8.4-10.5)
--- NOTE | 2018-05-25 08:07 | CARD ---
APPROVED REPORT Date of service: 05/25/2018 EKG Measurement Heart [id number] <Conclusion> Normal sinus rhythm Nonspecific T wave abnormality Q in lll
[2018-05-25] MEDS: Insulin Lispro (humaLOG) LOW Coverage SC SCH ×4 (09:22→22:01)
[2018-05-25] MEDS: Levothyroxine 25 MCG TAB PO SCH (09:23)
[2018-05-25 10:40] VITALS: RESP 20
--- NOTE | 2018-05-25 10:49 | CP.PCM.PN ---
Subjective - Date & Time of Evaluation Date of Evaluation: 05/25/18 Time of Evaluation: 08:47 - Subjective Subjective: Darryl Altamirano PGY2 IM Progress Note Patient was seen and examined at bedside. She states that her breathing and swelling has improved, but that she occasionally gets a cough. She did sleep well and denies any chest pain, fevers/chills, or any focal weakness. Objective - Vital Signs/Intake and Output Vital Signs (last 24 hours): Temp Pulse Resp BP Pulse Ox 97.6 F 91 H 20 163/76 H 94 L 05/25/18 05:28 05/25/18 09:23 05/25/18 05:28 05/25/18 09:24 05/25/18 05:28 Intake and Output: 05/25/18 05/25/18 06:59 18:59 Intake Total 120 Balance 120 - Medications Medications: Current Medications Amlodipine Besylate (Norvasc) 5 mg PO DAILY [facility] Last Admin: 05/25/18 09:23 Dose: 5 mg Atorvastatin Calcium (Lipitor) 40 mg PO DAILY [facility] Last Admin: 05/25/18 09:24 Dose: 40 mg Ferrous Gluconate (Fergon) 324 mg PO TID [facility] Last Admin: 05/25/18 09:27 Dose: 324 mg Furosemide (Lasix) 40 mg IVP DAILY [facility] Last Admin: 05/25/18 09:24 Dose: 40 mg Gabapentin (Neurontin) 300 mg PO TID PRN; Protocol PRN Reason: Pain, moderate (4-7) Insulin Human Lispro (Humalog Low) 0 units SC ACHS [facility]; Protocol Last Admin: 05/25/18 09:22 Dose: Not Given Levothyroxine Sodium (Synthroid) 50 mcg PO DAILY [facility] Last Admin: 05/25/18 09:23 Dose: 50 mcg - Labs Labs: 05/25/18 06:00 05/25/18 06:00 PT 10.5 SECONDS (9.4-12.5) 05/24/18 09:20 INR 0.91 05/24/18 09:20 APTT 32.1 Seconds (25.1-36.5) 05/24/18 09:20 - Additional Findings Additional findings: - Constitutional Appears: Well, Non-toxic, No Acute Distress - Head Exam Head Exam: NORMAL INSPECTION - Eye Exam Eye Exam: EOMI, Normal appearance, PERRL - ENT Exam ENT Exam: Mucous Membranes Moist - Neck Exam Neck exam: Positive for: Normal Inspection - Respiratory Exam Respiratory Exam: Rales (bibasilar, improved), NORMAL BREATHING PATTERN. absent: Rhonchi, Wheezes, Respiratory Distress - Cardiovascular Exam Cardiovascular Exam: Tachycardia, +S1, +S2, Systolic Murmur (grade 3 systolic) - GI/Abdominal Exam GI & Abdominal Exam: Normal Bowel Sounds, Soft. absent: Distended, Tenderness - Extremities Exam Extremities exam: Positive for: full ROM, pedal edema (1+ pitting edema b/l), pedal pulses present. Negative for: joint swelling, tenderness - Back Exam Back exam: NORMAL INSPECTION - Neurological Exam Neurological exam: Alert, CN II-XII Intact, Oriented x3 - Skin Skin Exam: Dry, Normal Color, Warm Assessment and Plan - Assessment and Plan (Free Text) Assessment: 82-year-old female with a PMH of CKD stage 3b, DM2, hypothyroidism, iron deficiency anemia who presents to the ED with exertional shortness of breath and leg swelling over the past 3-4 days, likely due to CHF exacerbation. There are no signs of pneumonia or other infections. There is presence of a systolic murmur which was not emphasized on prior admission or noted on Echo. Patient is also anemic. CKD is not acutely exacerbated. Plan: - obtain Echo to evaluate CHF and murmur - Lasix IVP daily - monitor daily weights and strict I/O - Cardiology Consulted, recs appreciated - cont Lipitor - cont Synthroid - cont iron - ISS low - cont Neurontin - PT eval pending - Further recs per Dr. Ding Case was reviewed and discussed with attending, Dr. Ding (covering for Dr. Roman) Darryl Altamirano PGY2
[2018-05-25] MEDS: Levalbuterol 1.25 MG/3 ML Inhal Soln UD IH SCH ×2 (14:03→19:45)
--- NOTE | 2018-05-25 20:33 | CON ---
DATE: 05/25/2018 REQUESTING PHYSICIAN: Dr. Roman. REASON FOR CONSULTATION: Congestive heart failure. HISTORY: This is an 82-year-old woman with a history of recent pneumonia and mitral regurgitation admitted with worsening dyspnea, cough and leg edema. She had been admitted with similar symptoms earlier in the ER and at that time was found to have normal LV systolic function with moderate mitral and tricuspid regurgitation. She had been treated with Lasix but had been advised discontinuation of this by her link trainer mechanic, Dr. Young. She denies any recent chest pain. Prior workup had revealed normal LV function with moderate mitral and tricuspid regurgitation. Stress test several years ago had shown no evidence of ischemia. She has been advised repeat evaluation and cardiac catheterization, but has refused in the past. PAST MEDICAL HISTORY: Notable for the problems mentioned above. She has a history of chronic renal insufficiency, peripheral neuropathy, hypothyroidism, hypertension and hyperlipidemia. MEDICATIONS: Her current medications include iron supplement, insulin coverage, Lasix 40 mg daily, Lipitor 40 mg daily, Neurontin, Norvasc and Synthroid. PAST SURGICAL HISTORY: She has undergone prior ankle surgery for fractures in the past. ALLERGIES: NONE. SOCIAL HISTORY: She does not smoke or drink. FAMILY HISTORY Both parents from age-related illness. REVIEW OF SYSTEMS: A 10-point review of systems is otherwise unremarkable. PHYSICAL EXAMINATION: GENERAL: She is a healthy-appearing elderly woman. VITAL SIGNS: Blood pressure is 160/76 with pulse of 90 and sinus, respirations are 16. She is afebrile. HEENT: Normocephalic, atraumatic. NECK: Supple. No JVD noted. CHEST: Bilateral scattered rhonchi heard. No rales noted. HEART: PMI displaced laterally with systolic murmur noted at the left sternal border at the apex. ABDOMEN: Soft and nontender with normoactive bowel sounds. EXTREMITIES: A support device is present on her right ankle. Trace ankle edema is noted bilaterally. PSYCHIATRIC: Normal mood and affect. NEUROLOGICAL: Alert and oriented x3. No gross motor or sensory deficits noted. DIAGNOSTIC DATA: Potassium 4.4, BUN and creatinine 33 and 1.7. Glucose 184. White count 9.6, hemoglobin and hematocrit 8.1 and 25.7 with platelet count 364,000. Hemoglobin on admission was 9.3. Electrocardiogram reveals sinus rhythm with nonspecific ST-T abnormalities. Chest x-ray reveals normal cardiac silhouette with mild bilateral atelectasis and bilateral pleural effusions right greater than left, mildly increased interstitial markings noted. IMPRESSION: 1. Decompensated congestive heart failure, [id number], appears diastolic in nature. 2. Moderate mitral regurgitation. 3. Moderate tricuspid regurgitation. 4. Iron deficiency anemia. 5. Bilateral pleural effusions. 6. Rest of the problems as noted. RECOMMENDATIONS: IV Lasix will be continued. Stool guaiacs will be checked. I's and O's will be monitored. Serial BNPs will be ordered as well. Her echocardiogram will be reviewed again. We will continue to follow and make further recommendations as appropriate. Thank you for this consultation. Jaycob Leblanc MD JORDAN
--- NOTE | 2018-05-25 22:22 | CP.PCM.PN ---
Subjective - Date & Time of Evaluation Date of Evaluation: 05/25/18 Time of Evaluation: 22:20 - Subjective Subjective: Patient had elevated glucose in the 300s and is refusing insulin at this time. Risks explained to patient of not taking insulin including worsening of known and unknown symptoms and possible , but patient continued to refuse insuli n. Objective - Vital Signs/Intake and Output Vital Signs (last 24 hours): Temp Pulse Resp BP Pulse Ox 98.3 F 84 20 143/61 94 L 05/25/18 17:58 05/25/18 17:58 05/25/18 17:58 05/25/18 17:58 05/25/18 05:28 Intake and Output: 05/25/18 05/26/18 18:59 06:59 Intake Total 1080 Output Total 1450 Balance -370 - Medications Medications: Current Medications Amlodipine Besylate (Norvasc) 5 mg PO DAILY [facility] Last Admin: 05/25/18 09:23 Dose: 5 mg Atorvastatin Calcium (Lipitor) 40 mg PO DAILY [facility] Last Admin: 05/25/18 09:24 Dose: 40 mg Ferrous Gluconate (Fergon) 324 mg PO TID [facility] Last Admin: 05/25/18 16:59 Dose: 324 mg Furosemide (Lasix) 40 mg IVP DAILY [facility] Last Admin: 05/25/18 09:24 Dose: 40 mg Gabapentin (Neurontin) 300 mg PO TID PRN; Protocol PRN Reason: Pain, moderate (4-7) Insulin Human Lispro (Humalog Low) 0 units SC ACHS [facility]; Protocol Last Admin: 05/25/18 22:01 Dose: Not Given Levalbuterol HCl (Xopenex) 1.25 mg IH [id number] [facility] Last Admin: 05/25/18 19:45 Dose: 1.25 mg Levothyroxine Sodium (Synthroid) 50 mcg PO DAILY [facility] Last Admin: 05/25/18 09:23 Dose: 50 mcg - Labs Labs: 05/25/18 06:00 05/25/18 06:00 PT 10.5 SECONDS (9.4-12.5) 05/24/18 09:20 INR 0.91 05/24/18 09:20 APTT 32.1 Seconds (25.1-36.5) 05/24/18 09:20
[2018-05-26 00:32] VITALS: O2SAT 96
[2018-05-26] MEDS: Levalbuterol 1.25 MG/3 ML Inhal Soln UD IH SCH ×2 (03:25→07:43)
[2018-05-26 06:33] LABS: CALCIUM 9.3 mg/dL (8.4-10.5)
[2018-05-26 06:36] VITALS: BP 153/77; PULSE 97; TEMP 98.7
[2018-05-26 06:36] LABS: HEMOGLOBIN 7.6 g/dL (12.0-16.0); MEAN CELL VOLUME 87.1 fl (80.0-105.0); MEAN CORPUSCULAR HGB CONC 32.2 g/dl (31.0-37.0); MEAN PLATELET VOLUME 9.7 fl (7.0-11.0); RBC 2.71 10^6/uL (3.5-6.1); RED CELL DISTRIBUTION WIDTH 16.5 % (11.5-14.5); WHITE BLOOD COUNT 11.2 10^3/ul (4.5-11.0)
--- NOTE | 2018-05-26 08:05 | PN ---
DATE: 05/25/2018 This is an addendum to the progress note written by resident. SUBJECTIVE: Resident's notes reviewed and agreed. The patient is 82 years old, who came in with congestion with no documented fever. She has past medical history of hyperlipidemia, hypertension, noninsulin-dependent diabetes, hypothyroidism and chronic anemia. The patient has been on IV Lasix. I added nebulizer treatment for 24-48 hours. Echocardiogram was done and awaiting the results, so await further management plan. So at this point, current medications seems to be appropriate. The patient will be reevaluated in the a.m. by . Spike Ding MD
[2018-05-26] MEDS: Levothyroxine 25 MCG TAB PO SCH (09:03)
--- NOTE | 2018-05-26 09:07 | CP.PCM.PN ---
Subjective - Date & Time of Evaluation Date of Evaluation: 05/26/18 Time of Evaluation: 07:00 - Subjective Subjective: Stable on 2R. No CP or SOB. + ambulation. BSs running high. V/S noted. RSR. PE: Lungs: rhonchi, decreased BS at bases Cor.: S1S2 Abd.: soft Ext.: no edema Neuro.: alert I/O= 1670/1850 Labs: noted: Cr.= 1.7, H/H 7.6/23.6 Objective - Vital Signs/Intake and Output Vital Signs (last 24 hours): Temp Pulse Resp BP Pulse Ox 98.7 F 97 H 20 153/77 H 96 05/26/18 06:00 05/26/18 06:00 05/26/18 06:00 05/26/18 06:00 05/26/18 06:00 Intake and Output: 05/26/18 05/26/18 06:59 18:59 Intake Total 540 Output Total 400 Balance 140 - Medications Medications: Current Medications Amlodipine Besylate (Norvasc) 5 mg PO DAILY [facility] Last Admin: 05/25/18 09:23 Dose: 5 mg Atorvastatin Calcium (Lipitor) 40 mg PO DAILY [facility] Last Admin: 05/25/18 09:24 Dose: 40 mg Ferrous Gluconate (Fergon) 324 mg PO TID [facility] Last Admin: 05/25/18 16:59 Dose: 324 mg Furosemide (Lasix) 40 mg IVP DAILY [facility] Last Admin: 05/25/18 09:24 Dose: 40 mg Gabapentin (Neurontin) 300 mg PO TID PRN; Protocol PRN Reason: Pain, moderate (4-7) Insulin Human Lispro (Humalog Low) 0 units SC [facility]; Protocol Last Admin: 05/25/18 22:01 Dose: Not Given Levalbuterol HCl (Xopenex) 1.25 mg IH [id number] [facility] Last Admin: 05/26/18 07:43 Dose: 1.25 mg Levothyroxine Sodium (Synthroid) 50 mcg PO DAILY [facility] Last Admin: 05/25/18 09:23 Dose: 50 mcg Losartan Potassium (Cozaar) 25 mg PO [facility] Metformin HCl (Glucophage) 500 mg PO BID [facility] Non-Formulary Medication (Linagliptin [Tradjenta]) 5 mg PO DAILY [facility] - Labs Labs: 05/26/18 05:45 05/26/18 05:45 PT 10.5 SECONDS (9.4-12.5) 05/24/18 09:20 INR 0.91 05/24/18 09:20 APTT 32.1 Seconds (25.1-36.5) 05/24/18 09:20 Assessment and Plan - Assessment and Plan (Free Text) Assessment: Dyspnea/Cough CHF/Pl. effusions Diabetes CKD Moderate MR and TR Pneumonia Hypothyroidism HLD Anemia, Fe. def. Plan: IV Lasix Anemia Eval. Will read echo: Prelim> Nl LV with mod/sev MR, etc. See report OOB as cliff Monitor: labs, I/O, Stool for OB, H/H, sats., etc.
--- NOTE | 2018-05-26 10:07 | CARD ---
APPROVED REPORT Date of service: 05/25/2018 EXAM: Two-dimensional and M-mode echocardiogram with Doppler and color Doppler. Other Information Quality : AverageRhythm : INDICATION Dyspnea 2D DIMENSIONS Left Atrium (2D)4.2 (1.6-4.0cm)IVSd1.1 (0.7-1.1cm) LVDd4.8 (3.9-5.9cm)PWd1.0 (0.7-1.1cm) LVDs3.2 (2.5-4.0cm)FS (%) 34.0 % LVEF (%)63.0 (>50%) M-Mode DIMENSIONS Aortic Root2.60 (2.2-3.7cm)Aortic Cusp Exc.1.20 (1.5-2.0cm) Aortic Valve AoV Peak Fshxdpkx600.0cm/s Mitral Valve MV E Imyihvcm304.0cm/sMV A Ymfdyidz43.7cm/sE/A ratio1.7 TDI E/Lateral E'0.0E/Medial E'0.0 Tricuspid Valve TR Peak Ijwkvspu701or/sRAP [id number] Peak Gr.56mmHg [id number] LEFT VENTRICLE The left ventricle is normal size. There is normal left ventricular wall thickness. The left ventricular function is normal. The left ventricular ejection fraction is within the normal range. There is normal LV segmental wall motion. RIGHT VENTRICLE The right ventricle is normal size. ATRIA The left atrium is moderately dilated. The right atrium size is normal. The interatrial septum is intact with no evidence for an atrial septal defect. AORTIC VALVE The aortic valve is mildly calcified. MITRAL VALVE The mitral valve is normal in structure. Mitral regurgitation is moderate to severe. TRICUSPID VALVE The tricuspid valve is normal in structure. There is moderate tricuspid regurgitation. There is moderate-severe pulmonary hypertension. PULMONIC VALVE The pulmonic valve is not well visualized. GREAT VESSELS The aortic root is normal in size. PERICARDIAL EFFUSION There is no pericardial effusion. <Conclusion> The left ventricle is normal size. There is normal left ventricular wall thickness. The left ventricular function is normal. Mitral regurgitation is moderate to severe. There is moderate tricuspid regurgitation. There is moderate-severe pulmonary hypertension.
--- NOTE | 2018-05-26 14:00 | CP.PCM.DIS ---
Provider - Provider Date of Admission: 05/24/18 11:57 Attending physician: Indio Roman MD Time Spent in preparation of Discharge (in minutes): 35 Diagnosis - Discharge Diagnosis (1) CHF (congestive heart failure) Status: Acute Hospital Course - Lab Results Lab Results: Most Recent Lab Values WBC 11.2 10^3/ul (4.5-11.0) H 05/26/18 05:45 RBC 2.71 10^6/uL (3.5-6.1) L 05/26/18 05:45 Hgb 7.6 g/dL (12.0-16.0) L 05/26/18 05:45 Hct 23.6 % (36.0-48.0) L 05/26/18 05:45 MCV 87.1 fl (80.0-105.0) 05/26/18 05:45 MCH 28.0 pg (25.0-35.0) 05/26/18 05:45 MCHC 32.2 g/dl (31.0-37.0) 05/26/18 05:45 RDW 16.5 % (11.5-14.5) H 05/26/18 05:45 Plt Count 350 10^3/uL (120.0-450.0) 05/26/18 05:45 MPV 9.7 fl (7.0-11.0) 05/26/18 05:45 Gran % 70.1 % (50.0-68.0) H 05/25/18 06:00 Lymph % (Auto) 17.6 % (22.0-35.0) L 05/25/18 06:00 [place] % (Auto) 9.2 % (1.0-6.0) H 05/25/18 06:00 Eos % (Auto) 2.5 % (1.5-5.0) 05/25/18 06:00 Baso % (Auto) 0.6 % (0.0-3.0) 05/25/18 06:00 Gran # 6.71 (1.4-6.5) H 05/25/18 06:00 Lymph # (Auto) 1.7 (1.2-3.4) 05/25/18 06:00 [place] # (Auto) 0.9 (0.1-0.6) H 05/25/18 06:00 Eos # (Auto) 0.2 (0.0-0.7) 05/25/18 06:00 Baso # (Auto) 0.06 K/mm3 (0.0-2.0) 05/25/18 06:00 PT 10.5 SECONDS (9.4-12.5) 05/24/18 09:20 INR 0.91 05/24/18 09:20 APTT 32.1 Seconds (25.1-36.5) 05/24/18 09:20 Sodium 138 mmol/L (132-148) 05/26/18 05:45 Potassium 3.8 mmol/L (3.6-5.0) 05/26/18 05:45 Chloride 105 mmol/L (98-107) 05/26/18 05:45 Carbon Dioxide 24 mmol/L (21-33) 05/26/18 05:45 Anion Gap 12 (10-20) 05/26/18 05:45 BUN 38 mg/dL (7-21) H 05/26/18 05:45 Creatinine 1.7 mg/dl (0.7-1.2) H 05/26/18 05:45 Est GFR ( Amer) 35 05/26/18 05:45 Est GFR (Non-Af Amer) 29 05/26/18 05:45 POC Glucose (mg/dL) 339 mg/dL (65-110) H 05/26/18 11:01 Random Glucose 225 mg/dL (70-110) H 05/26/18 05:45 Calcium 9.3 mg/dL (8.4-10.5) 05/26/18 05:45 Phosphorus 4.7 mg/dL (2.5-4.5) H 05/25/18 06:00 Magnesium 2.0 mg/dL (1.7-2.2) 05/25/18 06:00 Total Bilirubin 0.3 mg/dL (0.2-1.3) 05/25/18 06:00 AST 18 U/L (14-36) 05/25/18 06:00 ALT 18 U/L (7-56) 05/25/18 06:00 Alkaline Phosphatase 59 U/L (38-126) 05/25/18 06:00 Lactate Dehydrogenase 486 U/L (333-699) 05/24/18 20:50 Total Creatine Kinase 53 U/L (35-230) 05/24/18 20:50 Troponin I < 0.01 ng/mL 05/24/18 20:50 NT-Pro-B Natriuret Pep 1630 pg/mL (0-450) H 05/24/18 09:20 Total Protein 7.0 g/dL (5.8-8.3) 05/25/18 06:00 Albumin 3.9 g/dL (3.0-4.8) 05/25/18 06:00 Globulin 3.1 gm/dL 05/25/18 06:00 Albumin/Globulin Ratio 1.3 (1.1-1.8) 05/25/18 06:00 - Hospital Course Hospital Course: Ms. Lira is an 82-year-old female with a PMH of CKD G3b, DM 2, hypothyroidism and iron deficiency anemia who presented to the ED with exertional shortness of breath and worsening leg swelling, found to be in CHF exacerbation. The patient was admitted about 5 months ago for similar symptoms and was discharged with p.o. Lasix, however her analytical data scientist took her off the medication due to her CKD. The patient improved with IV diuresis. Echocardiogram was done which showed normal LV size and function, with moderate to severe pulmonary hypertension, and mitral and tricuspid regurgitation. Cardiology was consulted and followed the patient while in-house. Patient improved with IV diuresis, and on morning of discharge, she states that she felt much better. Patient participated in physical therapy while in-house. She was discharged with p.o. Lasix and an increased dose of Lipitor. She will follow-up with her PMD and sound art instructor. Discharge Exam - Head Exam Head Exam: NORMAL INSPECTION - Eye Exam Eye Exam: EOMI, Normal appearance, PERRL - ENT Exam ENT Exam: Mucous Membranes Moist - Neck Exam Neck exam: Full Rom, Normal Inspection - Respiratory Exam Respiratory Exam: Rales (LLL mild), NORMAL BREATHING PATTERN. absent: Rhonchi, Wheezes, Respiratory Distress - Cardiovascular Exam Cardiovascular Exam: RRR, +S1, +S2, +S4. absent: JVD - GI/Abdominal Exam GI & Abdominal Exam: Normal Bowel Sounds, Soft. absent: Distended, Tenderness - Extremities Exam Extremities exam: full ROM, normal inspection, pedal pulses present Additional comments: no pedal edema - Back Exam Back exam: NORMAL INSPECTION - Neurological Exam Neurological exam: Alert, CN II-XII Intact, Normal Gait, Oriented x3 - Psychiatric Exam Psychiatric exam: Normal Mood - Skin Skin Exam: Pallor, Warm Discharge Plan - Discharge Medications Prescriptions: Atorvastatin [Lipitor] 40 mg PO HS #14 tab Furosemide [Lasix] 40 mg PO DAILY #14 tab - Follow Up Plan Condition: GOOD Disposition: HOME/ ROUTINE Instructions: Heart Failure, Adult (DC), Shortness of Breath (Dyspnea) (DC), Swelling, Heart Failure (ED) Additional Instructions: - please take the Lasix 40mg daily and Lipitor 40mg at night daily - please follow-up with PMD within 2 weeks - please follow-up with [employer] within 2 weeks - if you experience worsening of symptoms, chest pain or shortness of breath, please return to ER
== END 2018-05-26 12:22 | disposition home or self-care (01) | DRG 291 ==
LOC: ED 09:00 → ERH 11:57 → 2RNO 18:34
PROVIDERS: ADMIT Internal Medicine Nephrology; ATTEND Internal Medicine Nephrology
PROC: 3E0F7GC Introduction of Other Therapeutic Substance into Respiratory Tract, Via Natural or Artificial Opening (ICD-10-PCS; principal; 2018-05-25)
DX: I13.0 Hypertensive heart and chronic kidney disease with heart failure and stage 1 through stage 4 chronic kidney disease, or unspecified chronic kidney disease (principal); I50.33 Acute on chronic diastolic (congestive) heart failure; N18.3 Chronic kidney disease, stage 3 (moderate); E11.22 Type 2 diabetes mellitus with diabetic chronic kidney disease; E11.42 Type 2 diabetes mellitus with diabetic polyneuropathy; K21.9 Gastro-esophageal reflux disease without esophagitis; E03.9 Hypothyroidism, unspecified; D50.9 Iron deficiency anemia, unspecified; E11.65 Type 2 diabetes mellitus with hyperglycemia; E78.5 Hyperlipidemia, unspecified; I27.20 Pulmonary hypertension, unspecified; I08.1 Rheumatic disorders of both mitral and tricuspid valves; Z79.84 Long term (current) use of oral hypoglycemic drugs; Z87.01 Personal history of pneumonia (recurrent); Z87.891 Personal history of nicotine dependence